=== PATIENT | male | born 1980 ===

== ENCOUNTER 2021-10-18 16:56 | Inpatient (IN) | payer OTHER, SELFPAY ==
[2021-10-18 19:25] VITALS: BP 1678/96; PULSE 95; RESP 18; TEMP 36.9; O2SAT 98; BMI 44.2
[2021-10-18 22:41] VITALS: BP 165/97; PULSE 82; RESP 20; TEMP 37.1; O2SAT 97
[2021-10-18 23:01] LABS: Hematocrit 43.7 % (42.0-52.0); Hemoglobin 15.1 g/dl (14.0-18.0); Mean Corpuscular HGB Conc 34.6 g/dl (31.0-36.0); Mean Corpuscular Hemoglobin 29.9 pg (27.0-33.0); Mean Corpuscular Volume 86.5 fL (80.0-98.0); Mean Platelet Volume 10.8 fL (9.4-12.4); Platelet Count 167 X10*3/uL (160-400); Red Blood Count 5.05 X10*6/uL (4.60-5.80); Red Cell Distribution Width 13.2 % (11.0-16.0); White Blood Count 9.9 X10*3/uL (4.8-10.8)
[2021-10-18 23:17] LABS: Alanine Aminotransferase 58 U/L (0-40); Albumin Level 4.3 g/dL (3.5-5.0); Alkaline Phosphatase 34 U/L (39-117); Anion Gap 13 (12-20); Aspartate Amino Transferase 24 U/L (5-37); Bilirubin Total 1.6 mg/dL (0.0-1.0); Blood Urea Nitrogen 13 mg/dL (9-16); Calcium 9.4 mg/dL (8.4-10.2); Carbon Dioxide 23 mmol/L (22-29); Chloride 108 mmol/L (96-108); Creatinine Clr Calc Pharmacy 130.8; Estimated Glomerular Filt Rate > 60; Glucose Random 92 mg/dL (60-115); Sodium 140 mmol/L (135-145); Total Protein 7.2 g/dL (6.5-8.0)
--- NOTE | 2021-10-18 23:30 | ED.SKABFB ---
HPI - Skin/Abscess/Foreign Bdy General Chief complaint: Burn/Smoke Inhalation Stated complaint: infection on left foot Time Seen by Provider: 10/18/21 22:34 Source: patient Mode of arrival: ambulatory Limitations: no limitations History of Present Illness HPI narrative: 40-year-old male who presents emergency department for evaluation burn to his left foot with increased pain, increased redness increased swelling. 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 He then accidentally spilled this water over his left foot. This occurred 72 hours prior to evaluation. He states that over the past 24 hours, he has had increased pain in his foot and ankle with increased swelling of his foot and ankle. He has also noted redness that is traveled up his leg. He denied fever, chills, weakness, fatigue, nausea or vomiting. The patient states that he has not been on antibiotics recently. He has never had a MRSA infection. He states that his tetanus status was updated 3 years prior at a routine physical examination. He states that he is currently having pain in his foot is ankle which she describes as a throbbing sensation, the pain is 7/10 at its worst. He did take ibuprofen with some relief, his last dose of ibuprofen was at noon. The patient is not vaccinated against COVID-19. complaint: rash Onset (ago): day(s) (3) Tetanus up to date: yes Location: LLE and L foot Severity: severe Severity scale (1-10): 7 Quality: other (Throbbing) Pain Consistency: constant Relieving factors: medication (Ibuprofen) Exacerbating factors: none Context: other (Hot water burn) Treatments prior to arrival: NSAID and other (Bacitracin) Related Data Allergies Allergy/AdvReac Type Severity Reaction Status Date / Time penicillin G Allergy Severe anaphylaxis Unverified 01/18/20 00:00 Penicillins [PENICILLINS] Allergy Unknown UNKNOWN Unverified 02/08/20 15:36 Review of Systems Review of Systems: Yes all other systems are reviewed and are negative [facility] Past Medical History [facility] Narrative: Past medical history: None. Past surgical history: Hernia repair, carpal tunnel repair. Social history: He denies tobacco use. He drinks several beers 2 times a week. He denies drug use. Social History Social History Advance Directives: No Advance Directives Information Provided: No Physical Exam Vital Signs: Vital Signs: Last Vital Signs Temp 98.8 F 10/18/21 22:41 Pulse 82 10/18/21 22:41 Resp 20 10/18/21 22:41 BP 165/97 H 10/18/21 22:41 Pulse Ox 97 10/18/21 22:41 BMI result Body Mass Index 44.2 Const: Other: Awake, alert, male patient, very pleasant cooperative, he does not appear to be in distress. Answers all questions appropriately HEENT: Head: Yes normal to inspection, Yes normocephalic and Yes atraumatic Ears: external ears normal General nose exam: Normal external nose present Face and sinus: Yes normal facial exam Mouth: Normal oral and palatal mucosa present Throat: Yes posterior oropharynx normal Eyes: General: appearance normal, both eyes and all related structures Pupils: Equal, round and reactive pupils present Neck: Neck: Yes normal visual inspection, Yes no lymphadenopathy, Yes trachea midline and Yes supple Chest: Chest palpation & inspection: normal inspection of the chest and normal palpation of entire chest wall Resp: Effort & Inspection: normal respiratory effort and able to speak in complete sentences Auscultation: clear to auscultation bilaterally Cardio: Rate: regular rate Rhythm: regular rhythm Heart sounds: S1 normal heart sound present, S2 normal heart sound present and no murmurs GI: Inspection: Yes normal to inspection Palpation (GI): Soft to palpation, nontender and no guarding Auscultation: normal bowel sounds : General: Yes no CVA tenderness Back/Spine/Pelvis: Back: no CVA tenderness Skin: General skin exam: no rashes or lesions noted Neuro: Cranial nerves: Yes CN's II-XII intact bilaterally and Yes Equal, round and reactive pupils present Cognition (Neuro): normal cognition Motor exam (neuro): 5/5 motor strength present throughout Extrem: Other: Second-degree burn to his foot and ankle with soft tissue swelling over the foot and ankle with erythema extending from the foot to just above the ankle with lymphangitis extending along the medial aspect of the calf and thigh extending to the left groin area. No adenopathy noted in the left groin area. General: Yes normal to inspection Psych: Appearance: grossly normal Speech and movement: Normal speech and movement present Affect: normal affect Attitude: cooperative Course Course Course Narrative: 40-year-old male patient who sustained a a burn injury to his right foot and ankle 3 days prior. Patient was making beer an excellent poor hot water over his foot and ankle. He states that over the last 24 hours he is had increased pain and swelling over the foot and ankle. He has had no other systemic symptoms. Vital signs did reveal an elevated blood pressure of 167/96 otherwise were unremarkable. The patient's right foot and ankle has several areas of second-degree burn he has lost the overlying skin and several areas of first-degree burn. He also has erythema of the foot extending to the ankle with a line a lymphangitis extending over the medial foot calf and thigh up to the groin area. The patient's tetanus status is up-to-date. The patient has a significant cellulitis with lymphangitis caused by this burn. I did order labs to include CBC, CMP, CRP, procalcitonin, lactate, blood cultures x2, COVID-19 and influenza screens. Patient has not been on antibiotics recently and does not have a history of MRSA therefore hip to with cefazolin 2 g IV. The patient's second-degree hoffman will be covered with bacitracin and dressed with non stick dressings. I will discuss admission with the covering hospitalist. 0108: Laboratory evaluation: CBC was normal. CMP did reveal an elevated AST and ALT of 5834, this appears to be chronic. Lactate was normal at 1.1. CRP was slightly elevated at 0.93. COVID-19 and influenza were negative. PTT was slightly elevated at 42.8. I did discuss the patient with the covering hospitalist, Dr. Sheehan and the patient will be admitted for further management. MDM - Skin/Abscess/Foreign Bdy Lab Data Result diagrams: 10/18/21 22:54 10/18/21 22:54 Labs: Lab Results 10/18/21 10/18/21 10/18/21 Range/Units 22:54 22:54 23:52 WBC 9.9 (4.8-10.8) X10*3/uL RBC 5.05 (4.60-5.80) X10*6/uL Hgb 15.1 (14.0-18.0) g/dl Hct 43.7 (42.0-52.0) % MCV 86.5 (80.0-98.0) fL MCH 29.9 (27.0-33.0) pg MCHC 34.6 (31.0-36.0) g/dl RDW 13.2 (11.0-16.0) % Plt Count 167 (160-400) X10*3/uL MPV 10.8 (9.4-12.4) fL Absolute Nucleated RBC 0.000 (0.0-0.012) X10*3/uL Nucleated RBC % (auto) 0.0 (0.0-0.2) /100WBC PT (9.9-13.0) SEC INR (0.9-1.1) APTT (24.1-38.0) SEC Sodium 140 (135-145) mmol/L Potassium 4.0 (3.3-5.1) mmol/L Chloride 108 (96-108) mmol/L Carbon Dioxide 23 (22-29) mmol/L Anion Gap 13 (12-20) BUN 13 (9-16) mg/dL Creatinine 1.10 (0.5-1.4) mg/dL Estim Creat Clear Calc 130.8 Estimated GFR > 60 Random Glucose 92 (60-115) mg/dL Lactic Acid (0.5-2.0) mmol/L Calcium 9.4 (8.4-10.2) mg/dL Total Bilirubin 1.6 H (0.0-1.0) mg/dL AST 24 (5-37) U/L ALT 58 H (0-40) U/L Alkaline Phosphatase 34 L (39-117) U/L C-Reactive Protein 0.93 H Cancelled (< or = 0.50) mg/dL Total Protein 7.2 (6.5-8.0) g/dL Albumin 4.3 (3.5-5.0) g/dL COVID-19 ([facility]) (Negative) COVID-19 Clin Com Influenza Type A ([facility]) (Negative) Influenza Type B ([facility]) (Negative) Influenza A & B Note 10/18/21 10/18/21 10/18/21 Range/Units 23:52 23:56 23:56 WBC (4.8-10.8) X10*3/uL RBC (4.60-5.80) X10*6/uL Hgb (14.0-18.0) g/dl Hct (42.0-52.0) % MCV (80.0-98.0) fL MCH (27.0-33.0) pg MCHC (31.0-36.0) g/dl RDW (11.0-16.0) % Plt Count (160-400) X10*3/uL MPV (9.4-12.4) fL Absolute Nucleated RBC (0.0-0.012) X10*3/uL Nucleated RBC % (auto) (0.0-0.2) /100WBC PT 11.7 (9.9-13.0) SEC INR 1.0 (0.9-1.1) APTT 42.8 H (24.1-38.0) SEC Sodium (135-145) mmol/L Potassium (3.3-5.1) mmol/L Chloride (96-108) mmol/L Carbon Dioxide (22-29) mmol/L Anion Gap (12-20) BUN (9-16) mg/dL Creatinine (0.5-1.4) mg/dL Estim Creat Clear Calc Estimated GFR Random Glucose (60-115) mg/dL Lactic Acid (0.5-2.0) mmol/L Calcium (8.4-10.2) mg/dL Total Bilirubin (0.0-1.0) mg/dL AST (5-37) U/L ALT (0-40) U/L Alkaline Phosphatase (39-117) U/L C-Reactive Protein (< or = 0.50) mg/dL Total Protein (6.5-8.0) g/dL Albumin (3.5-5.0) g/dL COVID-19 ([facility]) Negative (Negative) COVID-19 Clin Com See Note Influenza Type A ([facility]) Negative (Negative) Influenza Type B ([facility]) Negative (Negative) Influenza A & B Note See Note 10/18/21 Range/Units 23:56 WBC (4.8-10.8) X10*3/uL RBC (4.60-5.80) X10*6/uL Hgb (14.0-18.0) g/dl Hct (42.0-52.0) % MCV (80.0-98.0) fL MCH (27.0-33.0) pg MCHC (31.0-36.0) g/dl RDW (11.0-16.0) % Plt Count (160-400) X10*3/uL MPV (9.4-12.4) fL Absolute Nucleated RBC (0.0-0.012) X10*3/uL Nucleated RBC % (auto) (0.0-0.2) /100WBC PT (9.9-13.0) SEC INR (0.9-1.1) APTT (24.1-38.0) SEC Sodium (135-145) mmol/L Potassium (3.3-5.1) mmol/L Chloride (96-108) mmol/L Carbon Dioxide (22-29) mmol/L Anion Gap (12-20) BUN (9-16) mg/dL Creatinine (0.5-1.4) mg/dL Estim Creat Clear Calc Estimated GFR Random Glucose (60-115) mg/dL Lactic Acid 1.5 (0.5-2.0) mmol/L Calcium (8.4-10.2) mg/dL Total Bilirubin (0.0-1.0) mg/dL AST (5-37) U/L ALT (0-40) U/L Alkaline Phosphatase (39-117) U/L C-Reactive Protein (< or = 0.50) mg/dL Total Protein (6.5-8.0) g/dL Albumin (3.5-5.0) g/dL COVID-19 ([facility]) (Negative) COVID-19 Clin Com Influenza Type A ([facility]) (Negative) Influenza Type B ([facility]) (Negative) Influenza A & B Note
[2021-10-19 00:01] LABS: Prothrombin Time 11.7 SEC (9.9-13.0)
[2021-10-19 00:04] LABS: Partial Thromboplastin Time 42.8 SEC (24.1-38.0)
[2021-10-19] MEDS: 0.9 % Sodium Chloride 1,000 ML 999 ML IV (00:11)
[2021-10-19 00:13] LABS: C Reactive Protein 0.93 mg/dL (< or = 0.50)
[2021-10-19] MEDS: Ketorolac Tromethamine 15 MG/ML VIAL 30 MG IVPUSH (00:13)
[2021-10-19 00:15] LABS: Lactic Acid 1.5 mmol/L (0.5-2.0)
[2021-10-19 00:24] LABS: COVID-19 Test Negative (Negative); IDNOW Serial# 16C4AD1C; Influenza A Negative (Negative); Influenza B2 Negative (Negative)
[2021-10-19] MEDS: Bacitracin Oint 0.9 GM PACKET 1 APPL TOPICAL (00:42)
[2021-10-19] MEDS: ceFAZolin Sodium/Dextrose,Iso 2 GM/50 ML PIGGYBACK IV ×2 (00:42→07:55)
--- NOTE | 2021-10-19 01:09 | PM.IMHP ---
History of Present Illness Date of Service: 10/19/21 Chief Complaint: burn injury /pain 40-year-old male with no significant past medical history presented to the hospital today with chief complaint of left lower extremity pain redness and swelling. Patient reported that couple days ago he had heart border at 180 degrees F fell on his feet while he was brewing beer; followed by he has been applying some topical antibiotics to prevent infection; lately noted to have gradually worsening erythema and pain hence decided to come to the ER for further evaluation. Denies any fevers and chills. Denies any chest pain or palpitation Denies any numbness tingling or focal weakness Review of all other systems is negative except mentioned above ER course: Per ER team patient noted to have significant erythema, blisters on the left foot and ankle; with spreading lymphangitis; given several Zosyn. Admitted to the hospital for further management PMFSH Social History Advance Directives: No Advance Directives Information Provided: No Meds Allergies Allergy/AdvReac Type Severity Reaction Status Date / Time penicillin G Allergy Severe anaphylaxis Unverified 01/18/20 00:00 Penicillins [PENICILLINS] Allergy Unknown UNKNOWN Unverified 02/08/20 15:36 Active Medications: Current Medications Enoxaparin Sodium (Enoxaparin Sodium 40 Mg/0.4 Ml Syringe) 40 mg SUBCUT Q24H [facility] Hydromorphone HCl (Hydromorphone Hcl 1 Mg/Ml Syringe) 0.5 mg IVPUSH Q4H PRN; Protocol PRN Reason: Pain, Severe (Pain Scale 7-10) Sodium Chloride (Ns) 1,000 mls @ 50 mls/hr IVCONT .Q20H [facility]SAEL Cefazolin Sodium/Dextrose (Ancef) 2 gm in 50 mls @ 100 mls/hr IV Q12H [facility] Sodium Chloride (0.9 % Sodium Chloride Flush 3 Ml Syringe) 3 ml IVFLUSH QSHIFT [facility] Physical Exam Vital Signs and Narrative: Vital Signs: Last Vital Signs Temp 98.8 F 10/18/21 22:41 Pulse 82 10/18/21 22:41 Resp 20 10/18/21 22:41 BP 165/97 H 10/18/21 22:41 Pulse Ox 97 10/18/21 22:41 BMI result Body Mass Index 44.2 Gen: Appears be in no acute distress HEENT: NCAT, Moist mucosa. Pulmonary: Vesicular breath sounds, fair air entry CVS: Normal S1-S2 Abdomen: BS+, Soft, Nontender Extremities: Warm well perfused; left lower extremity has burn injury with erythema and blisters as shown in the pictures below; also noted lymphangitis Neuro: Alert and awake. Results Labs CBC and Chem 7: 10/18/21 22:54 10/18/21 22:54 Labs: Laboratory Results - last 24 hr 10/18/21 10/18/21 10/18/21 22:54 22:54 23:52 MCV 86.5 MCH 29.9 MCHC 34.6 RDW 13.2 Plt Count 167 MPV 10.8 Absolute Nucleated RBC 0.000 Nucleated RBC % (auto) 0.0 PT INR APTT Anion Gap 13 Estim Creat Clear Calc 130.8 Estimated GFR > 60 Random Glucose 92 Lactic Acid Calcium 9.4 Total Bilirubin 1.6 H AST 24 ALT 58 H Alkaline Phosphatase 34 L C-Reactive Protein 0.93 H Cancelled Total Protein 7.2 Albumin 4.3 COVID-19 ([facility]) COVID-19 Clin Com Influenza Type A ([facility]) Influenza Type B ([facility]) Influenza A & B Note 10/18/21 10/18/21 10/18/21 23:52 23:56 23:56 MCV MCH MCHC RDW Plt Count MPV Absolute Nucleated RBC Nucleated RBC % (auto) PT 11.7 INR 1.0 APTT 42.8 H Anion Gap Estim Creat Clear Calc Estimated GFR Random Glucose Lactic Acid Calcium Total Bilirubin AST ALT Alkaline Phosphatase C-Reactive Protein Total Protein Albumin COVID-19 ([facility]) Negative COVID-19 Clin Com See Note Influenza Type A ([facility]) Negative Influenza Type B ([facility]) Negative Influenza A & B Note See Note 10/18/21 23:56 MCV MCH MCHC RDW Plt Count MPV Absolute Nucleated RBC Nucleated RBC % (auto) PT INR APTT Anion Gap Estim Creat Clear Calc Estimated GFR Random Glucose Lactic Acid 1.5 Calcium Total Bilirubin AST ALT Alkaline Phosphatase C-Reactive Protein Total Protein Albumin COVID-19 ([facility]) COVID-19 Clin Com Influenza Type A ([facility]) Influenza Type B ([facility]) Influenza A & B Note Assessment and Plan (1) Burn: Status: Acute (2) Cellulitis of foot: Status: Acute Plan 40-year-old male with no significant past medical history presented to the hospital today with chief complaint of left lower extremity pain redness and swelling secondary to burn injury from hot water; noted to have cellulitis. Admitted for further management. Left ankle/foot burn injury / cellulitis: Continue cefazolin IV Dilaudid p.r.n. Id consult for further recommendations Silver sulfadiazine wound consult DVT prophylaxis: Lovenox Code status: Full code Quality Stroke Does the patient have a stroke diagnosis?: No VTE Prior VTE?: No VTE Risk Level:: Medical - moderate - high VTE Device Contraindication: Treatment Not Indicated VTE Drug Contraindication: N/A - Med Ordered
[2021-10-19] MEDS: Morphine Sulfate 4 MG/ML CARTRIDGE IVPUSH ×2 (02:23→11:43)
[2021-10-19] MEDS: 0.9 % Sodium Chloride 1,000 ML 50 ML IVCONT (02:24)
[2021-10-19 07:41] VITALS: BP 148/93; PULSE 66; RESP 14; O2SAT 99
[2021-10-19] MEDS: Silver Sulfadiazine 1 % Cream 20 GM TUBE 1 APPL TOPICAL (07:54)
[2021-10-19] MEDS: HYDROmorphone HCl 1 MG/ML SYRINGE 0.5 MG IVPUSH (07:54)
[2021-10-19] MEDS: Enoxaparin Sodium 40 MG/0.4 ML SYRINGE SUBCUT (07:54)
[2021-10-19] MEDS: 0.9 % Sodium Chloride Flush 3 ML SYRINGE IVFLUSH (07:55)
[2021-10-19 08:17] LABS: MANUAL DIFF FLAG NO
[2021-10-19 08:25] LABS: Basophils Percent Auto 0.2 % (0-2); Eosinophils Absolute Auto 0.3 X10*3/uL (0.0-0.4); Eosinophils Percent Auto 3.4 % (0-4); Hematocrit 42.8 % (42.0-52.0); Hemoglobin 14.6 g/dl (14.0-18.0); Imm Gran Abs Auto 0.06 X10*3/uL (0.00-0.03); Imm Gran Pct Auto 0.7 % (0.0-0.4); Lymphocytes Absolute Auto 1.7 X10*3/uL (1.2-4.9); Mean Corpuscular HGB Conc 34.1 g/dl (31.0-36.0); Mean Corpuscular Hemoglobin 29.7 pg (27.0-33.0); Mean Corpuscular Volume 87.2 fL (80.0-98.0); Mean Platelet Volume 11.2 fL (9.4-12.4); Monocytes Absolute Auto 0.9 X10*3/uL (0.1-1.2); Monocytes Percent Auto 9.8 % (2-11); Neutrophils Absolute Auto 6.2 x10*3/uL (2.0-8.3); Neutrophils Percent Auto 67.9 % (45-73); Platelet Count 139 X10*3/uL (160-400); Red Blood Count 4.91 X10*6/uL (4.60-5.80); Red Cell Distribution Width 13.2 % (11.0-16.0); White Blood Count 9.2 X10*3/uL (4.8-10.8)
[2021-10-19 08:48] LABS: Anion Gap 13 (12-20); Blood Urea Nitrogen 11 mg/dL (9-16); Calcium 8.8 mg/dL (8.4-10.2); Carbon Dioxide 24 mmol/L (22-29); Chloride 107 mmol/L (96-108); Creatinine Clr Calc Pharmacy 171.3; Estimated Glomerular Filt Rate > 60; Glucose Random 101 mg/dL (60-115); Potassium 4.4 mmol/L (3.3-5.1); Sodium 140 mmol/L (135-145)
--- NOTE | 2021-10-19 09:05 | PHA.MEDREC ---
Pharmacy Consult ? Medication Reconciliation Pharmacy has completed the medication reconciliation. Patient reports no medications prescription or OTC. Cong AmadorD
--- NOTE | 2021-10-19 09:46 | PC.NURSE ---
LLE wound cleaned, and dressed. ordered silverdine cream placed on wound. pt a/o, ambulatory. PRN pain meds given. Pt to be heading to overflow. Report called to Laura JONH.
--- NOTE | 2021-10-19 13:31 | MHC.CM.PN ---
PT REPORTS HE LIVES ALONE AND IS INDEPENDENT [facility] PT DENIES USING DME OR HAVING HOME SERVICES PT REPORTS HE IS NOT COVID-19 VACCINATED PCP: ROOPA VILLATORO PT REPORTS HIS FATHER IS HIS HCP DC PLAN, HOME NO SERVICES PT WILL DRIVE HIMSELF AT DC
[2021-10-19] MEDS: HYDROmorphone HCl 1 MG/ML SYRINGE IVPUSH ×2 (13:49→17:57)
--- NOTE | 2021-10-19 15:44 | PHA.PROG ---
Admission Date/Time: October 19, 2021 00:56 Indication: Weight in k kg Adjusted body weight in K.76 Waves body weight in Kg: Obesity Dosing Indication % IBW: Serum Creatinine - Last 168 Hours 10/18/21 10/19/21 22:54 07:34 Creatinine 1.10 0.84 Estimated CrCl and GFR - Last 168 Hours 10/18/21 10/19/21 22:54 07:34 Estim Creat Clear Calc 130.8 171.3 Estimated GFR > 60 > 60 Vancomycin Loading Dose: 2000 mg Current Vancomycin Dosing Regimen:1 gram q 12 hour Vancomycin Monitoring using AUC goal of 400 - 600 range with trough as surrogate marker:predicted AUC 445 Date and Time for next Vancomycin Level to be drawn:WILL CHECK A RANDOM AFTER 2 DOSES FOR TOXICITY Pharmacist Comments on Vancomycin Plan: Vancomycin dosing will take advantage of [employer] as a clinical decision support tool that uses Bayesian modeling to calculate individual patient's pharmacokinetic parameters and forecast the patient's drug concentration time course with the target goal AUC 24 range of 400 - 600 mg/L/hr.
[2021-10-19 17:47] VITALS: BP 158/92; PULSE 87; RESP 18; TEMP 37.2; O2SAT 99
--- NOTE | 2021-10-19 18:55 | P.PNIM_ITS ---
Subjective Subjective Date of Service: 10/19/21 Interval History: Patient seen and examined at bedside. Reports improvement of the redness on his upper foot/lower leg. Reports pain is poorly controlled. Denies any chest pain or shortness of breath, no abdominal pain nausea or vomiting, no diarrhea. No fever or chills. Review of Systems Review of Systems: Yes all other systems are reviewed and are negative Physical Exam Vital Signs: Vital Signs: Last Vital Signs Temp 99.0 F 10/19/21 17:47 Pulse 87 10/19/21 17:47 Resp 18 10/19/21 17:47 BP 158/92 H 10/19/21 17:47 Pulse Ox 99 10/19/21 17:47 BMI result Body Mass Index 44.2 Const: General: cooperative, comfortable and no acute distress Resp: Auscultation: clear to auscultation bilaterally Cardio: Other: Normal rate and rhythm GI: Other: Soft, nontender, bowel sounds normal Skin: Other: Left foot wrapped, no evidence of discharge Objective Data Active Medications Enoxaparin Sodium (Enoxaparin Sodium 40 Mg/0.4 Ml Syringe) 40 mg SUBCUT Q24H [facility] Last Admin: 10/19/21 07:54 Dose: 40 mg Documented by: AYUSH Hydromorphone HCl (Hydromorphone Hcl 1 Mg/Ml Syringe) 1 mg IVPUSH Q4H PRN; Protocol PRN Reason: Pain, Severe (Pain Scale 7-10) Last Admin: 10/19/21 17:57 Dose: 1 mg Documented by: BRAULIO Sodium Chloride (Ns) 1,000 mls @ 50 mls/hr IVCONT .Q20H [facility] Last Admin: 10/19/21 02:24 Dose: 50 mls/hr Documented by: BRAULIO Vancomycin HCl 1,000 mg/ (Sodium Chloride) 270 mls @ 270 mls/hr IV Q12H [facility] Pharmacy Consult (Consult Rx Vancomycin Dosing) 1 each MISCELLANE DAILY PRN PRN Reason: Consult order Silver Sulfadiazine (Silver Sulfadiazine 1 % Cream 20 Gm Tube) 1 appl TOPICAL DAILY [facility] Last Admin: 10/19/21 07:54 Dose: 1 appl Documented by: AYUSH Sodium Chloride (0.9 % Sodium Chloride Flush 3 Ml Syringe) 3 ml IVFLUSH QSHIFT [facility] Last Admin: 10/19/21 17:43 Dose: Not Given Documented by: BRAULIO Non-Admin Reason: IV Running Labs CBC & Chem 7: 10/19/21 07:34 10/19/21 07:34 Labs: Laboratory Results - last 24 hr 10/18/21 10/18/21 10/18/21 22:54 22:54 23:52 MCV 86.5 MCH 29.9 MCHC 34.6 RDW 13.2 Plt Count 167 MPV 10.8 Immature Gran % (Auto) Neut % (Auto) Lymph % (Auto) [place] % (Auto) Eos % (Auto) Baso % (Auto) Lymph # (Auto) [place] # (Auto) Eos # (Auto) Baso # (Auto) Abs Immat Gran (auto) Absolute Neuts (auto) Absolute Nucleated RBC 0.000 Nucleated RBC % (auto) 0.0 PT INR APTT Anion Gap 13 Estim Creat Clear Calc 130.8 Estimated GFR > 60 Random Glucose 92 Lactic Acid Calcium 9.4 Total Bilirubin 1.6 H AST 24 ALT 58 H Alkaline Phosphatase 34 L C-Reactive Protein 0.93 H Cancelled Total Protein 7.2 Albumin 4.3 COVID-19 ([facility]) COVID-19 Clin Com Influenza Type A ([facility]) Influenza Type B ([facility]) Influenza A & B Note 10/18/21 10/18/21 10/18/21 23:52 23:56 23:56 MCV MCH MCHC RDW Plt Count MPV Immature Gran % (Auto) Neut % (Auto) Lymph % (Auto) [place] % (Auto) Eos % (Auto) Baso % (Auto) Lymph # (Auto) [place] # (Auto) Eos # (Auto) Baso # (Auto) Abs Immat Gran (auto) Absolute Neuts (auto) Absolute Nucleated RBC Nucleated RBC % (auto) PT 11.7 INR 1.0 APTT 42.8 H Anion Gap Estim Creat Clear Calc Estimated GFR Random Glucose Lactic Acid Calcium Total Bilirubin AST ALT Alkaline Phosphatase C-Reactive Protein Total Protein Albumin COVID-19 ([facility]) Negative COVID-19 Clin Com See Note Influenza Type A ([facility]) Negative Influenza Type B ([facility]) Negative Influenza A & B Note See Note 10/18/21 10/19/21 10/19/21 23:56 07:34 07:34 MCV 87.2 MCH 29.7 MCHC 34.1 RDW 13.2 Plt Count 139 L MPV 11.2 Immature Gran % (Auto) 0.7 H Neut % (Auto) 67.9 Lymph % (Auto) 18.0 L [place] % (Auto) 9.8 Eos % (Auto) 3.4 Baso % (Auto) 0.2 Lymph # (Auto) 1.7 [place] # (Auto) 0.9 Eos # (Auto) 0.3 Baso # (Auto) 0.0 Abs Immat Gran (auto) 0.06 H Absolute Neuts (auto) 6.2 Absolute Nucleated RBC 0.000 Nucleated RBC % (auto) 0.0 PT INR APTT Anion Gap 13 Estim Creat Clear Calc 171.3 Estimated GFR > 60 Random Glucose 101 Lactic Acid 1.5 Calcium 8.8 D Total Bilirubin AST ALT Alkaline Phosphatase C-Reactive Protein Total Protein Albumin COVID-19 ([facility]) COVID-19 Clin Com Influenza Type A ([facility]) Influenza Type B ([facility]) Influenza A & B Note Assessment and Plan (1) Cellulitis of foot: Status: Acute (2) Burn: Status: Acute Plan 40-year-old male with? no significant past medical history presented to the hospital today with chief complaint of left lower extremity pain redness and swelling? secondary to burn injury from hot water; noted to have cellulitis.? Admitted for further management.? #Left ankle/foot burn injury / cellulitis: - given the exposed Injury, will switch done via antibiotics - Dilaudid p.r.n. - Id consult for further recommendations - Silver sulfadiazine - wound consult DVT prophylaxis:? Lovenox Code status:? Full code Quality Stroke Does the patient have a stroke diagnosis?: No VTE Prior VTE?: No VTE Risk Level:: Medical - moderate - high VTE Device Contraindication: Treatment Not Indicated VTE Drug Contraindication: N/A - Med Ordered
[2021-10-20] VITALS: BP 161/81; PULSE 88; RESP 18; TEMP 37.4; O2SAT 100
[2021-10-20] MEDS: HYDROmorphone HCl 1 MG/ML SYRINGE IVPUSH (01:30)
[2021-10-20] MEDS: 0.9 % Sodium Chloride 1,000 ML 50 ML IVCONT (01:32)
[2021-10-20 04:15] VITALS: BP 151/75; PULSE 91; RESP 16; TEMP 36.8; O2SAT 97
[2021-10-20] MEDS: vancomycin HCL 1,000 MG in 0.9 % Sodium Chloride 250 ML 270 MG IV (05:59)
[2021-10-20 08:28] VITALS: BP 127/68; PULSE 89; RESP 16; TEMP 37.7; O2SAT 95
[2021-10-20] MEDS: Enoxaparin Sodium 40 MG/0.4 ML SYRINGE SUBCUT (08:34)
--- NOTE | 2021-10-20 09:51 | HE.PHANOTE ---
Vancomycin Dosing Addendum Vancomycin Trough from 10/20/21 @1600, also ordered Cr for same time since it was not drawn this morning. Continue with current regimen for now
--- NOTE | 2021-10-20 10:01 | P.CONGS_ITS ---
History of Present Illness Consult details Consult date: 10/20/21 Requesting physician: Olive Page Narrative: 40-year-old male patient who sustained a left foot scald burn while making beer. He reports he was wearing flip-flops shoes when the boiling liquid used to make beer tipped over and landed on his foot. This occurred on Wednesday10/15/2021. He immediately developed blisters on the forefoot. Reports applying bacitracin ointment to the wound. Over the next several days he noted increased redness extending up above the ankle and subsequently presented to the emergency department for further evaluation. He was admitted to the hospitalist service and placed on IV antibiotics. Silvadene cream was applied to the wound. He reports improvement in the redness above the leg and mainly complains of pain in the big toe. He denies any other injuries. Review of Systems Constitutional: Constitutional: Denies chills, Denies fever(s), Denies heada natalie(s) and Denies poor appetite ENT: Denies dizziness and Denies headache(s) Cardiovascular: Cardiovascular: Denies chest pain, Denies rapid heart rate, Denies palpitations and Denies slow heart rate Respiratory: Respiratory: Denies chest congestion, Denies cough, Denies pain on inspiration and Denies wheezing Gastrointestinal: Gastrointestinal: Denies abdominal pain, Denies bloating, Denies change in stool character, Denies constipation, Denies diarrhea, Denies nausea, Denies vomiting and Denies hematemesis Musculoskeletal: Musculoskeletal: Denies back pain, Denies arthralgias, Denies joint swelling and Denies numbness Integumentary/Breasts: Skin/Breast: Reports as per HPI, Reports change in pigmentation, Reports erythema, Denies rash and Reports wounds Neurologic: Denies dizziness, Denies headache(s) and Denies numbness Psychiatric: Psychiatric: Denies anxiety and Denies depression Endocrine: Endocrine: Denies palpitations Hematologic/Lymphatic: Hematologic/Lymphatic: Denies easy bleeding, Denies easy bruising and Denies lymphadenopathy Allergic/Immunologic: Allergic/Immunologic: Denies wheezing PMFSH Social History Social History Advance Directives: No Advance Directives Information Provided: No service: No Current occupational status: employed Meds Allergies Allergy/AdvReac Type Severity Reaction Status Date / Time penicillin G Allergy Severe anaphylaxis Unverified 01/18/20 00:00 Penicillins [PENICILLINS] Allergy Unknown UNKNOWN Unverified 02/08/20 15:36 Active Medications: Current Medications Enoxaparin Sodium (Enoxaparin Sodium 40 Mg/0.4 Ml Syringe) 40 mg SUBCUT Q24H [facility] Last Admin: 10/20/21 08:34 Dose: 40 mg Documented by: Hydromorphone HCl (Hydromorphone Hcl 1 Mg/Ml Syringe) 1 mg IVPUSH Q4H PRN; Protocol PRN Reason: Pain, Severe (Pain Scale 7-10) Last Admin: 10/20/21 01:30 Dose: 1 mg Documented by: Sodium Chloride (Ns) 1,000 mls @ 50 mls/hr IVCONT .Q20H [facility] Last Admin: 10/20/21 01:32 Dose: 50 mls/hr Documented by: Vancomycin HCl 1,000 mg/ (Sodium Chloride) 270 mls @ 270 mls/hr IV Q12H [facility] Last Admin: 10/20/21 05:59 Dose: 270 mls/hr Documented by: Ibuprofen (Ibuprofen 400 Mg Tablet) 400 mg PO Q6H PRN PRN Reason: Pain, Moderate (Pain Scale 4-6 Pharmacy Consult (Consult Rx Vancomycin Dosing) 1 each MISCELLANE DAILY PRN PRN Reason: Consult order Silver Sulfadiazine (Silver Sulfadiazine 1 % Cream 20 Gm Tube) 1 appl TOPICAL DAILY [facility] Last Admin: 10/19/21 07:54 Dose: 1 appl Documented by: Sodium Chloride (0.9 % Sodium Chloride Flush 3 Ml Syringe) 3 ml IVFLUSH QSHIFT [facility] Last Admin: 10/20/21 09:36 Dose: Not Given Documented by: Home Medications Medication Instructions Recorded Confirmed Last Taken Type No Known Home Meds 10/19/21 10/19/21 Unknown History Physical Exam Vital Signs: Vital Signs: Last Vital Signs Temp 99.8 F 10/20/21 08:28 Pulse 89 10/20/21 08:28 Resp 16 10/20/21 08:28 BP 127/68 10/20/21 08:28 Pulse Ox 95 10/20/21 08:28 BMI result Body Mass Index 44.2 Const: General: cooperative and well developed Nutritional Appearance: well nourished Orientation/consciousness: patient oriented x3 HEENT: Head: Yes normocephalic and Yes atraumatic Ears: hearing grossly normal bilaterally Eyes: Sclerae: sclerae normal EOM: EOMs intact bilaterally Neck: Neck: Yes normal visual inspection Chest: Chest palpation & inspection: normal inspection of the chest Resp: Effort & Inspection: normal respiratory effort, no cough, no respiratory distress and no stridor Auscultation: clear to auscultation bilaterally Cardio: Jugular venous distension: no JVD GI: Inspection: Yes normal to inspection Skin: Other: Left foot wound as noted below, no other lesions General skin exam: dry skin Rashes: no rashes Neuro: General: patient oriented x3 and no focal motor deficits Extrem: Other: Left foot with a partial thickness scald burn involving the dorsum of the left foot not involving toes and not involving the plantar surface. Total surface area proximally 1%. Minimal erythema noted above the ankle, mostly resolved. Burn wounds are sensate to light touch. No evidence of burn wound sepsis. General: Yes full ROM and Yes no clubbing, cyanosis or edema Ankle/foot/toe images: 1. Site of scald burn wound left foot Psych: Appearance: grossly normal Results Labs Result diagrams: 10/19/21 07:34 10/19/21 07:34 Labs: All other labs normal. Assessment and Plan (1) Burn: Status: Acute (2) Cellulitis of foot: Status: Acute (3) Cellulitis of ankle: Status: Acute Plan 40-year-old male patient presenting with a scald burn to the left foot while making beer. Patient had a partial-thickness burn to the dorsum of the left foot approximately 1% total body surface area. No areas of full-thickness burn are identified. There is no evidence of burn wound sepsis. Wound should heal w ithout the need for surgery or skin graft. Recommend continuing the daily Silvadene dressings. Patient may shower to remove the old Silvadene and apply a new dressing with Silvadene followed by dry sterile dressings. He should keep his left leg elevated as much as possible and avoid prolonged standing and walking. He should follow up either with our office or other wound care center within the next week. Procedures Date of Service Date of Service: 10/20/21
[2021-10-20] MEDS: Ibuprofen 400 MG TABLET PO (10:18)
[2021-10-20] MEDS: Silver Sulfadiazine 1 % Cream 20 GM TUBE 1 APPL TOPICAL (10:19)
--- NOTE | 2021-10-20 11:04 | P.DS_ITS ---
DS: Providers Provider Date of Service: 10/20/21 Date of admission: 10/19/21 00:56 Primary care physician: Smith Asencio MD Consults: 10/19/21 00:54 Consult to Infectious Diseases Routine Consulting Provider: Janine Bishop Reason for consultation: cellulitis s/p burn injury 10/20/21 09:41 Consult to General Surgery Routine Consulting Provider: Severo Andrews Reason for consultation: left foot burn Has provider been notified: No DS: Diagnosis Discharge Diagnosis (1) Burn: Status: Acute (2) Cellulitis of foot: Status: Acute (3) Cellulitis of ankle: Status: Acute DS: Summary Hospital Course Hospital Course: History of presenting illness Chief Complaint:? burn injury /pain ?40-year-old male with? no significant past medical history presented to the hospital today with chief complaint of left lower extremity pain redness and swelling.? Patient reported that couple days ago 180 degrees radha water on his foot while he was? brewing beer;he has been applying silvadene to prevent infection; lately noted to have gradually worsening erythema and pain hence decided to come to the ER for further evaluation.? Denies any fevers and chills.? Denies any chest pain or palpitation Denies any numbness tingling or focal weakness Review of all other systems is negative except mentioned above ER course: Per ER team patient noted to have significant erythema, blisters on the left foot and ankle; with spreading lymphangitis; given several Zosyn.? Admitted to the hospital for further management. Hospital course 40-year-old male with? no significant past medical history presented to the hospital with chief complaint of left lower extremity pain redness and swelling? secondary to burn injury from hot water; noted to have cellulitis of dorsum of foot extended towards lower leg patient treated with IV antibiotics, analgesics and daily Silvadene dressing symptoms improved to above treatment subsequently patient evaluated by Dr. Ulrich from General surgery patient diagnosed to have partial thickness burn he agreed with daily Silvadene treatment since patient is feeling better he is being discharged home on oral antibiotics for total 7 days he has been recommended to keep left foot elevated and avoid prolong standing he has been recommended outpatient follow-up with Dr. Ulrich for ambulation he has been provided crutches patient is being discharged on Motrin and oxycodone for pain control. Time Spent with Patient Time attestation: Total time spent providing and/or coordinating discharge services: Discharge coordination time: Greater than 30 minutes Quality: Safe Use of Opioids Does Pt have an Active Cancer Diagnosis on the Problem List?: No Quality: Stroke Does the patient have a stroke diagnosis?: No Physical Exam Vital Signs: Vital Signs: Last Vital Signs Temp 99.8 F 10/20/21 08:28 Pulse 89 10/20/21 08:28 Resp 16 10/20/21 08:28 BP 127/68 10/20/21 08:28 Pulse Ox 95 10/20/21 08:28 BMI result Body Mass Index 44.2 Const: Other: General awake,alert, no acute distress. Neck no JVD. CVS regular rate rhythm, Respiratory lungs clear to auscultation, no respiratory distress, no wheeze, no rhonchi. Gastrointestinal abdomen soft, nontender, bowel sounds audible Extremities right lower extremity no edema., left lower extremity partial- thickness burn, with significant hyperemia Neuro nonfocal Skin no rash DS: Data Data Completed and Pending Labs on day of discharge: Preliminary micro results at discharge 10/19/21 00:27 Blood Culture - Preliminary Blood - Venous No growth after 24 hours. 10/18/21 23:52 Blood Culture - Preliminary Blood - Venous No growth after 24 hours. Discharge Plan Discharge Patient Disposition: Home, Self-Care Discharge Diagnosis: Acute left foot/ankle cellulitis Left foot burn Referrals: Smith Asencio MD [Primary Care Provider] - 1 Week Discharge Medications: New oxycodone 5 mg tablet 5 mg PO Q6H PRN (Reason: pain (scale score 7-10)) Qty: 14 0RF silver sulfadiazine 1 % Cream 1 appl topical DAILY Qty: 85 0RF ibuprofen 400 mg Tablet 400 mg PO Q6H PRN (Reason: Pain, Moderate (Pain Scale 4-6) Qty: 30 0RF amoxicillin-pot clavulanate 875-125 mg tablet 1 tab PO BID Qty: 10 0RF famotidine [Pepcid] 20 mg tablet 20 mg PO DAILY Qty: 20 0RF Discharge Orders: Discharge Order (Routine); Ordered 10/20/21 Ordered By: Olive Page Diet: advance to usual diet Activity on Discharge: Walk with crutches Stand Alone Forms: Patient Portal Discharge page Care Plan Goals: Left foot with partial-thickness burn to dorsum of left foot apply Silvadene cream to foot once daily, may shower to remove the old Silvadene and then apply a new dressing keep left leg elevated as much as possible, avoid prolonged walking and standing. Take Tylenol/Motrin for pain/take Pepcid 1 tablet daily for gastric ulcer prevention while on motrin. Health Concerns: As above Plan of Treatment: Outpatient follow-up with Dr. Ulrich from General surgery in 1 week or follow- up with Wound Care Clinic Assessment: As per DC summary
--- NOTE | 2021-10-20 11:48 | MHC.CM.PN ---
HOME - SELF CARE CAR IS IN LOT RN AWARE OF PLAN
== END 2021-10-20 12:02 | disposition home or self-care (01) | DRG 844 ==
LOC: HO.ED 10-19 00:31 → HO.EDOVER 10-19 01:33 → HO.S3 10-20 11:40
PROVIDERS: Admitting Provider Hospitalist; Emergency Provider Emergency Medicine Emergency Medical Services; PCP Internal Medicine; Visit Provider Hospitalist
DX: T25.292A Burn of second degree of multiple sites of left ankle and foot, initial encounter (principal); L03.116 Cellulitis of left lower limb; T31.0 Burns involving less than 10% of body surface; X12.XXXA Contact with other hot fluids, initial encounter; Z20.822 Contact with and (suspected) exposure to COVID-19; Y93.G3 Activity, cooking and baking; Z88.0 Allergy status to penicillin; Z79.899 Other long term (current) drug therapy
CPT/HCPCS: 36415; 80048; 80053; 83605; 85025; 85027; 85610; 85730; 86140; 87040; 87502; 87635; 96361; 96374; 96375; 99218; 99284; 99285; J0690; J1170; J1650; J1885; J2270; J3370

== ENCOUNTER 2022-09-14 07:17 | Outpatient (REF) | payer OTHER, SELFPAY ==
[2022-09-14 11:17] LABS: MANUAL DIFF FLAG NO
[2022-09-14 11:31] LABS: Appearance Urine Clear; Color Urine Yellow; Glucose Urine UA Negative (Negative); Leukocyte Esterase Urine Negative (Negative); Nitrite Urine Negative (Negative); Urine Blood Negative (Negative); Urine Ketones Negative (Negative); Urine Protein Negative (Neg-Trace)
[2022-09-14 11:49] LABS: Basophils Percent Auto 0.4 % (0-2); Eosinophils Absolute Auto 0.3 X10*3/uL (0.0-0.4); Eosinophils Percent Auto 3.7 % (0-4); Hemoglobin 14.3 g/dl (14.0-18.0); Imm Gran Abs Auto 0.07 X10*3/uL (0.00-0.03); Imm Gran Pct Auto 0.9 % (0.0-0.4); Lymphocytes Absolute Auto 2.3 X10*3/uL (1.2-4.9); Lymphocytes Percent Auto 29.8 % (20-40); Mean Corpuscular HGB Conc 33.3 g/dl (31.0-36.0); Mean Corpuscular Hemoglobin 29.5 pg (27.0-33.0); Mean Corpuscular Volume 88.7 fL (80.0-98.0); Mean Platelet Volume 11.5 fL (9.4-12.4); Monocytes Absolute Auto 0.6 X10*3/uL (0.1-1.2); Monocytes Percent Auto 7.9 % (2-11); Neutrophils Absolute Auto 4.3 x10*3/uL (2.0-8.3); Neutrophils Percent Auto 57.3 % (45-73); Platelet Count 162 X10*3/uL (160-400); Red Blood Count 4.85 X10*6/uL (4.60-5.80); Red Cell Distribution Width 13.1 % (11.0-16.0); White Blood Count 7.6 X10*3/uL (4.8-10.8)
[2022-09-14 12:13] LABS: Alanine Aminotransferase 37 U/L (0-40); Albumin Level 4.2 g/dL (3.5-5.0); Alkaline Phosphatase 32 U/L (39-117); Anion Gap 11 (12-20); Aspartate Amino Transferase 19 U/L (5-37); Bilirubin Total 1.3 mg/dL (0.0-1.0); Blood Urea Nitrogen 18 mg/dL (9-16); Calcium 8.9 mg/dL (8.4-10.2); Carbon Dioxide 28 mmol/L (22-29); Chloride 107 mmol/L (96-108); Cholesterol 207 mg/dL; Estimated Glomerular Filt Rate > 60; Glucose Fasting 110 mg/dL (60-99); HDL Cholesterol 41 mg/dL; LDL Cholesterol Calculated 148 mg/dl; Potassium 4.1 mmol/L (3.3-5.1); Sodium 142 mmol/L (135-145); Total Protein 6.8 g/dL (6.5-8.0); Triglycerides 94 mg/dL
[2022-09-14 12:17] LABS: TSH reflex Free T4 1.31 uIU/mL (0.32-4.0); Vitamin D 25-OH Total 23.6 ng/mL (>30)
== END 2022-09-14 07:18 | disposition home or self-care (01) ==
LOC: HO.HMGCLDS 07:17
PROVIDERS: PCP Internal Medicine; Visit Provider Internal Medicine
DX: Z00.00 Encounter for general adult medical examination without abnormal findings (principal); E55.9 Vitamin D deficiency, unspecified; I10 Essential (primary) hypertension; E78.00 Pure hypercholesterolemia, unspecified
CPT/HCPCS: 36415; 80053; 80061; 81003; 82306; 84443; 85025

== ENCOUNTER 2022-09-16 10:14 | Outpatient (REF) | payer OTHER, SELFPAY ==
--- NOTE | ~2022-09-16 | XR_ITS ---
EXAMINATION: XR CHEST CLINICAL INFORMATION: J98.8 - Other specified respiratory disorders COMPARISON: Chest radiographs 08/19/2018 TECHNIQUE: 2 views of the chest were obtained. FINDINGS: Lungs clear. No airspace consolidation or groundglass opacity or effusion. The heart is normal in size. The hilar and mediastinal contours are unremarkable. No acute bony abnormality. XR/XR chest 2V IMPRESSION: Unremarkable examination.
== END 2022-09-16 10:15 | disposition home or self-care (01) ==
LOC: HO.HMGCX 10:14
PROVIDERS: PCP Internal Medicine; Visit Provider Internal Medicine
DX: J98.8 Other specified respiratory disorders (principal); R05.9 Cough, unspecified
CPT/HCPCS: 71046

== ENCOUNTER 2022-12-08 07:55 | Outpatient (AMB) | payer OTHER, SELFPAY ==
--- NOTE | 2022-12-08 08:03 | MHC.OFFVIS ---
Intake Vital Signs 12/08/22 08:05 Height 6 ft Weight 338 lb 8 oz BMI 45.9 BP 148/92 H Blood Pressure Location Rt brachial Position Sitting Pulse 78 Pulse Source Pulse Oximeter Pulse Oximetry (%) 97 Intake Visit Reasons: NPV-MARGI Intake Note: Patient presents for new patient evaluation for MARGI Allergies penicillin G Allergy (Severe, Verified 12/08/22 08:08) anaphylaxis Penicillins [PENICILLINS] Allergy (Unknown, Verified 12/08/22 08:08) UNKNOWN lisinopril Adverse Reaction (Intermediate, Verified 12/08/22 08:08) Cough HPI HPI Comments History of Present Illness Details 41 y/o male patient presents for new in-person visit for sleep consultation. Pt reports that he snores, has gasping arousals 5-10 times at night, and non refreshing sleep. Pt did not have sleep study done, but he bought a CPAP by online 2 years ago and tried it. He uses CPAP at [id number] and noticed that he sleeps much better, and his daytime symptoms has improved. He states that he can't sleep without CPAP now. Sleep questionnaire: Have you ever been diagnosed with a sleep disorder? No. Have you ever had a sleep study in the past? No. Have you ever been treated for a sleep disorder? CPAP. Do you take medications for a sleep disorder? No. Do you snore? Yes. Do you wake up gasping at night? Yes. Do you have episodes of apneas? Yes. If yes, are they witnessed? No. Do you have episodes of nocturnal chest pain or dyspnea? Yes. Do you have difficulty initiating sleep? Yes. Do you have difficulty maintaining sleep? Yes. Do you wake up tired? Yes. Do you have headaches upon awakening? Yes. Do you wake up with dry mouth or throat? Yes. Do you have GERD? Yes. Do you have nocturia? No. Do you have nocturnal leg cramps? No. Do you have symptoms of restless legs? No. Do you act out your dreams? No. Sleep hygiene questionnaire: What is your usual sleep routine? Usual bedtime is at 10 pm; Usual wake up time is at 5:30 am. Do you take naps? No. Is your sleep environment cool, dark, and quiet? Yes. Do you exercise? Walking. Do you take caffeine or other stimulants? 3 big cup of coffee a day. Do you use electronics in bed? Yes. What is your work schedule? 7 days a week, day shift. Hypersomnolence questionnaire: Do you have daytime tiredness or fatigue? Yes. Do you easily fall asleep when inactive? No. Have you ever had episodes of sudden weakness? No. Have you ever had episodes of sudden weakness associated with strong emotions? No. [facility] Medical History (Updated 12/08/22 @ 08:35 by Blossom Dyson CNP) Benign essential hypertension Impaired fasting glucose Morbid obesity with BMI of 40.0-44.9, adult Obstructive sleep apnea Pure hypercholesterolemia Vitamin D deficiency Surgical History History of bilateral carpal tunnel release (~2005) History of prostate surgery (~04/2019) History of vasectomy (~01/16/22) Hx of left inguinal hernia repair (~2008) Social History Housing: Apartment Alcohol intake: current Alcohol intake frequency: holidays/special occasions only Patient Tobacco Use Status: Never used Tobacco e-Cigarette/Vaping Use: Never Used Second Hand Smoke Exposure: No service: No Current occupational status: employed Cognitive needs: No Hearing needs: No Vision needs: Yes Review of Systems Const All systems reviewed & are unremarkable except as noted in HPI and below ENT Reports Normal hearing present Neuro Reports Normal hearing present Physical Exam Vital Signs: Last Vital Signs Pulse 78 12/08/22 08:05 BP 148/92 H 12/08/22 08:05 Pulse Ox 97 12/08/22 08:05 BMI result Body Mass Index 45.9 Const General: cooperative Nutritional Appearance: obese Orientation/consciousness: patient oriented x3 Neck Neck: Yes full ROM and Yes supple Resp Effort & Inspection: normal respiratory effort and able to speak in complete sentences Neuro General: patient oriented x3, gait normal and moves all extremities Cranial nerves: Yes Bilaterally intact EOM present, Yes Normal facial strength present, Yes Midline tongue present, Yes Symmetric palate elevation present, Yes Normal hearing present, Yes Ability to bilaterally rotate head present and Yes Ability to bilaterally elevate shoulders present Cognition (Neuro): normal cognition Gait exam (Neuro): Normal gait present Motor exam (neuro): 5/5 motor strength present throughout, Pronator motor function not present and no tremor noted Psych Appearance: grossly normal Mental Status: mental status grossly normal Speech and movement: Normal speech and movement present Attitude: cooperative Assessment & Plan Assessment & Plan (1) Snoring: Code(s): R06.83 - Snoring (2) Morbid obesity with BMI of 45.0-49.9, adult: Code(s): E66.01 - Morbid (severe) obesity due to excess calories; Z68.42 - Body mass index [BMI] 45.0-49.9, adult (3) Obstructive sleep apnea: Code(s): G47.33 - Obstructive sleep apnea (adult) (pediatric) Plan Pt is advised to undergo home sleep study to assess for sleep apnea. Will f/u with pt after study to discuss results and appropriate treatment options. Sleep hygiene education provided. Wt reduction advised. Pt to call with any worsening concerns or questions. Orders: Orders RT home sleep study Today E66.01 - Morbid (severe) obesity due to excess calories, G47.33 - Obstructive sleep apnea (adult) (pediatric), R06.83 - Snoring, Z68.42 - Body mass index [BMI] 45.0-49.9, adult Coding Level of Care Code New Pt Level 3 (14788) Diagnoses Snoring R06.83 Morbid obesity with BMI of 45.0-49.9, adult E66.01; Z68.42 Obstructive sleep apnea G47.33
[2022-12-08 08:05] VITALS: BP 148/92; PULSE 78; O2SAT 97; BMI 45.9
== END 2022-12-08 08:51 | disposition home or self-care (01) ==
LOC: HO.HSMC 07:55
PROVIDERS: PCP Internal Medicine; Visit Provider Nurse Practitioner Family
DX: R06.83 Snoring (principal); E66.01 Morbid (severe) obesity due to excess calories; Z68.42 Body mass index [BMI] 45.0-49.9, adult; G47.33 Obstructive sleep apnea (adult) (pediatric)
CPT/HCPCS: 99203

== ENCOUNTER → 2022-12-08 07:55 | Outpatient (BNVA) | payer OTHER, SELFPAY | PROVIDERS: PCP Internal Medicine; Visit Provider Nurse Practitioner Family | DX: G47.33 Obstructive sleep apnea (adult) (pediatric) (principal); R06.83 Snoring; E66.01 Morbid (severe) obesity due to excess calories; Z68.42 Body mass index [BMI] 45.0-49.9, adult | CPT/HCPCS: 99202 ==

== ENCOUNTER 2023-01-14 09:09 | Outpatient (AMB) | payer OTHER, SELFPAY ==
--- NOTE | 2023-01-14 09:42 | MHC.OFFWIV ---
Intake Vital Signs 01/14/23 09:43 Height 6 ft Weight 153.314 kg BMI 45.8 BP 134/78 Blood Pressure Location Rt brachial Position Sitting Pulse 94 Pulse Source Pulse Oximeter Temp 97 F Temp Source Temporal Artery Scan Pulse Oximetry (%) 96 Oxygen Delivery Method Room Air Intake Visit Reasons: EP ingrown hair Intake Note: Pt is here c/o ingrown hair around his groin area. Pt states it is getting bigger and there is discharge coming out of it. Patient Tobacco Use Status: Never used Tobacco Allergies penicillin G Allergy (Severe, Verified 01/14/23 09:44) anaphylaxis Penicillins [PENICILLINS] Allergy (Unknown, Verified 01/14/23 09:44) UNKNOWN lisinopril Adverse Reaction (Intermediate, Verified 01/14/23 09:44) Cough Do you need a note to return to daycare/school/sports/work: No HPI HPI Comments History of Present Illness Details 1005 42-year-old male presents with an ingrown hair to his right mons pubis going on for the past few weeks worsening no has some discharge coming from the area, redness and swelling. He states that this happened to him before and he ended up hospitalized with IV antibiotics because eating care for it. Physical exam significant for a 2 cm x 2 cm indurated region in the right mons pubis with no visualization of ingrown hair, overlying erythema and warmth, a small area appears to have some pus. This is likely folliculitis with ingrown hair with cellulitis. Unlikely necrotizing infection foreigniers gangrene. No sign of abscess at this time, likely developing abscess. Plan at this time I inserted a small 24 gauge needle and de roofed the area where there was pus noted, this area drained, the remainder of the area is indurated, inappropriate to do an incision and drainage of fine needle aspiration. Educated patient on warm compresses discharging him on doxycycline, gave him topical antibiotic ointment. Educated patient on diagnosis and treatment plan, answered all question, patient verbalizes understanding. At this time patient will be discharged home, advised to return with new or worsening symptoms. Educated on worrisome signs and symptoms and when to return. At this time I feel comfortable discharge home. [facility] Medical History Benign essential hypertension Impaired fasting glucose Morbid obesity with BMI of 40.0-44.9, adult Obstructive sleep apnea Pure hypercholesterolemia Vitamin D deficiency Surgical History History of bilateral carpal tunnel release (~2005) History of prostate surgery (~04/2019) History of vasectomy (~01/16/22) Hx of left inguinal hernia repair (~2008) Social History Housing: Apartment Alcohol intake: current Alcohol intake frequency: holidays/special occasions only Patient Tobacco Use Status: Never used Tobacco e-Cigarette/Vaping Use: Never Used Second Hand Smoke Exposure: No service: No Current occupational status: employed Cognitive needs: No Hearing needs: No Vision needs: Yes Review of Systems Const Details: Constitutional : No Fever, No Chills, Cardiovascular : No Chest Pain, No SOB Respiratory : No Dyspnea Gastrointestinal : No abdominal pain Musculoskeletal : No Joint Swelling Skin : No rash, + abscess, No skin laceration Neuro : No Weakness, No Numbness Psych : No SI/HI All systems reviewed & are unremarkable except as noted in HPI and below Physical Exam Vital Signs: Last Vital Signs Temp 97 F 01/14/23 09:43 Pulse 94 01/14/23 09:43 BP 134/78 01/14/23 09:43 Pulse Ox 96 01/14/23 09:43 Oxygen Delivery Method Room Air 01/14/23 09:43 BMI result Body Mass Index 45.8 Vital signs stable Appearance: Alert.? Oriented X3.? No acute distress.? Head: Normocephalic, atraumatic, no step-offs or deformities Eyes: Pupils equal, round and reactive to light.? CVS: Normal heart rate and rhythm.? Pulses normal.? Respiratory: No respiratory distress.? Breath sounds normal.? Abdomen: Soft and nontender.? Skin: Skin warm and dry.? Normal skin color.? Normal skin turgor.? 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 Extremities: No lower extremity edema.? No calf ttp. 5/5 strength to bilateral upper and lower extremities Neuro: Oriented X 3.? No motor deficit.? No sensory deficit. 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 If you were prescribed antibiotics today, it is important that you take your medication to their entirety, do not skip any doses, do not finish them early. Follow-up with your primary care provider this week. Return to the emergency department with new or worsening symptoms. Such as fevers, chills, chest pain, shortness of breath, nausea, vomiting, dizziness, headache, vision changes, lethargy In case of emergency call 911 Medications: New doxycycline hyclate 100 mg PO BID 7 days 14 caps 0RF Coding Level of Care Code Est Pt Level 3 (72876) Diagnoses Ingrown hair L73.1 Cellulitis L03.90
[2023-01-14 09:43] VITALS: BP 134/78; PULSE 94; TEMP 36.1; O2SAT 96; BMI 45.8
== END 2023-01-14 10:24 | disposition home or self-care (01) ==
PROVIDERS: PCP Internal Medicine; Visit Provider Physician Assistant
DX: L73.1 Pseudofolliculitis barbae (principal); L03.90 Cellulitis, unspecified
CPT/HCPCS: 99213

== ENCOUNTER → 2023-02-18 08:53 | Outpatient (REF) | payer OTHER, SELFPAY | LOC: HO.SL 08:53 | PROVIDERS: PCP Internal Medicine; Visit Provider Nurse Practitioner Family | DX: G47.33 Obstructive sleep apnea (adult) (pediatric) (principal); R06.83 Snoring; E66.01 Morbid (severe) obesity due to excess calories; Z68.42 Body mass index [BMI] 45.0-49.9, adult | CPT/HCPCS: 95806 ==

== ENCOUNTER → 2023-02-18 09:25 | Outpatient (BNV) | payer OTHER, SELFPAY | PROVIDERS: PCP Internal Medicine; Visit Provider Psychiatry & Neurology Neurology | DX: R06.83 Snoring (principal) | CPT/HCPCS: 95806 ==

== ENCOUNTER → 2023-04-05 20:30 | Outpatient (BNV) | payer OTHER, SELFPAY | PROVIDERS: PCP Internal Medicine; Visit Provider Psychiatry & Neurology Neurology | DX: G47.33 Obstructive sleep apnea (adult) (pediatric) (principal); G47.61 Periodic limb movement disorder | CPT/HCPCS: 95810 ==

== ENCOUNTER → 2023-04-05 23:02 | Outpatient (REF) | payer OTHER, SELFPAY | LOC: HO.SL 23:02 | PROVIDERS: PCP Internal Medicine; Visit Provider Nurse Practitioner Family | DX: G47.33 Obstructive sleep apnea (adult) (pediatric) (principal); R06.83 Snoring; E66.01 Morbid (severe) obesity due to excess calories; Z68.42 Body mass index [BMI] 45.0-49.9, adult | CPT/HCPCS: 95810 ==

== ENCOUNTER 2023-09-29 10:38 | Outpatient (REF) | payer OTHER, SELFPAY ==
[2023-09-29 13:17] LABS: MANUAL DIFF FLAG NO
[2023-09-29 13:31] LABS: Basophils Percent Auto 0.5 % (0-2); Eosinophils Absolute Auto 0.2 X10*3/uL (0.0-0.4); Eosinophils Percent Auto 3.8 % (0-4); Hematocrit 44.6 % (42.0-52.0); Hemoglobin 15.3 g/dl (14.0-18.0); Imm Gran Abs Auto 0.03 X10*3/uL (0.00-0.03); Imm Gran Pct Auto 0.5 % (0.0-0.4); Lymphocytes Absolute Auto 1.6 X10*3/uL (1.2-4.9); Lymphocytes Percent Auto 27.6 % (20-40); Mean Corpuscular HGB Conc 34.3 g/dl (31.0-36.0); Mean Corpuscular Hemoglobin 29.6 pg (27.0-33.0); Mean Corpuscular Volume 86.3 fL (80.0-98.0); Mean Platelet Volume 10.5 fL (9.4-12.4); Monocytes Absolute Auto 0.5 X10*3/uL (0.1-1.2); Neutrophils Absolute Auto 3.5 x10*3/uL (2.0-8.3); Neutrophils Percent Auto 59.6 % (45-73); Platelet Count 177 X10*3/uL (160-400); Red Blood Count 5.17 X10*6/uL (4.60-5.80); Red Cell Distribution Width 13.3 % (11.0-16.0); White Blood Count 5.8 X10*3/uL (4.8-10.8)
[2023-09-29 13:36] LABS: Appearance Urine Clear; Color Urine Yellow; Glucose Urine UA Negative (Negative); Leukocyte Esterase Urine Trace (Negative); Nitrite Urine Negative (Negative); PH 7.5 (5.0-9.0); Specific Gravity - Urine <= 1.005 (1.005-1.025); UMIC TRIGGER UACC YES; Urine Blood Negative (Negative); Urine Ketones Negative (Negative); Urine Protein Negative (Neg-Trace)
[2023-09-29 13:36] LABS: Estimated Average Glucose 94 mg/dL; Hemoglobin A1c % 4.9 % (<6.0)
[2023-09-29 13:45] LABS: Bacteria Urine None Seen (None Seen); Hyaline Casts Urine 0-2 /LPF (0-2); RBC Urine 0-2 /HPF (0-2); Squamous Epithelial Cell Urine 0-2 /HPF (0-2); WBC Urine 0-5 /HPF (0-5)
[2023-09-29 13:50] LABS: Alanine Aminotransferase 53 U/L (0-40); Albumin Level 4.5 g/dL (3.5-5.0); Alkaline Phosphatase 34 U/L (39-117); Anion Gap 14 (12-20); Aspartate Amino Transferase 27 U/L (5-37); Bilirubin Total 1.2 mg/dL (0.0-1.0); Blood Urea Nitrogen 15 mg/dL (9-16); Calcium 10.2 mg/dL (8.4-10.2); Carbon Dioxide 26 mmol/L (22-29); Chloride 106 mmol/L (96-108); Cholesterol 189 mg/dL (<200); Estimated Glomerular Filt Rate > 60; Glucose Fasting 93 mg/dL (60-99); HDL Cholesterol 44 mg/dL (>40); LDL Cholesterol Calculated 133 mg/dL (<100); Potassium 4.4 mmol/L (3.3-5.1); Sodium 142 mmol/L (135-145); Total Protein 7.6 g/dL (6.5-8.0); Triglycerides 62 mg/dL (<150)
[2023-09-29 13:56] LABS: TSH reflex Free T4 0.92 uIU/mL (0.32-4.0)
== END 2023-09-29 10:39 | disposition home or self-care (01) ==
LOC: HO.HMGCLDS 10:38
PROVIDERS: PCP Internal Medicine; Visit Provider Internal Medicine
DX: E55.9 Vitamin D deficiency, unspecified (principal); E78.00 Pure hypercholesterolemia, unspecified; R73.01 Impaired fasting glucose; I10 Essential (primary) hypertension
CPT/HCPCS: 36415; 80053; 80061; 81001; 82306; 83036; 84443; 85025

== ENCOUNTER 2023-12-14 14:20 | Outpatient (AMB) | payer OTHER, SELFPAY ==
--- NOTE | 2023-12-14 14:21 | AM.OFFWIN_ITS ---
Intake Vital Signs 12/14/23 14:22 Height 6 ft Weight 338 lb BMI 45.8 BP 150/80 H Blood Pressure Location Lt brachial Position Sitting Pulse 87 Pulse Source Pulse Oximeter Temp 98.0 F Temp Source Temporal Artery Scan Pulse Oximetry (%) 98 Intake Visit Reasons: EP redness swelling groin area Intake Note: pt is here for redness and swelling groin area, suspects STD. patient had intercourse recently and rash and discomfort in genital area Patient Tobacco Use Status: Never used Tobacco Allergies penicillin G Allergy (Severe, Verified 12/14/23 14:22) anaphylaxis Penicillins [PENICILLINS] Allergy (Unknown, Verified 12/14/23 14:22) UNKNOWN lisinopril Adverse Reaction (Intermediate, Verified 12/14/23 14:22) Cough Do you need a note to return to daycare/school/sports/work: No HPI HPI Comments History of Present Illness Details He presents to office with redness to penis States ongoing for a week No trauma or injury Symptoms come and go and worse after intercourse Tried hydrocortisone to region with some relief Minimal burning without discharge + redness to distal foreskin and proxima l shaft States had some aching in testicles which resolved No testicular edema, redness or pain No dysuria, frequency or urgency that differs from baseline post TURP No known STD exposure but would like to be checked No hx diabetes PFSH Medical History Benign essential hypertension Impaired fasting glucose Morbid obesity with BMI of 40.0-44.9, adult Obstructive sleep apnea Pure hypercholesterolemia Vitamin D deficiency Surgical History History of bilateral carpal tunnel release (~2005) History of prostate surgery (~04/2019) History of vasectomy (~01/16/22) Hx of left inguinal hernia repair (~2008) Social History Housing: Apartment Alcohol intake: current Alcohol intake frequency: holidays/special occasions only Patient Tobacco Use Status: Never used Tobacco e-Cigarette/Vaping Use: Never Used Second Hand Smoke Exposure: No service: No Current occupational status: employed Cognitive needs: No Hearing needs: No Vision needs: Yes Review of Systems Const Denies chills and Denies fever(s) GI Denies abdominal pain Denies hematuria, Reports difficulty urinating (baseline post TURP), Denies genital lesions (redness but no painful small bumps), Denies dysuria, Denies penile discharge, Reports testicular pain (previously intermittent. No current pain), Denies urinary frequency, Denies urinary hesitancy, Denies urinary incontinence and Denies urinary urgency Skin/Breast Reports erythema (penile foreskin) Physical Exam Vital Signs: Last Vital Signs Temp 98.0 F 12/14/23 14:22 Pulse 87 12/14/23 14:22 BP 150/80 H 12/14/23 14:22 Pulse Ox 98 12/14/23 14:22 BMI result Body Mass Index 45.8 General: Non-toxic, NAD. Speaking full sentences. Skin: Warm dry throughout : There is dry very slightly erythematous skin to distal aspect of foreskin and anterior testicles. No warmth, discharge, vesicles or head of penis edema. No discharge from os. No foreskin edema Eye: EOMI Respiratory: No respiratory distress MSK: Full ROM extremities. Neurology: A/O. No aphasia or facial droop. Gait without abnormality Psych: Good mood and affect Assessment & Plan Assessment & Plan (1) Dysuria: Code(s): R30.0 - Dysuria Plan: Patient seen and evaluated. States he would like to be checked for STDs. GC and chlamydia sent Yeast culture obtained and sent but rash appears fungal in nature Ketoconazole to pharmacy Discussed care and when to call office for follow up Discussed symptoms that require ER evaluation Patient gave verbal understanding and had no additional questions or concerns at time of discharge All questions answered (2) Penile rash: Code(s): R21 - Rash and other nonspecific skin eruption Plan: see above Orders: Orders CT NG by PCR Today R30.0 - Dysuria Fungus Cult Hair/Skin/Nail Today R21 - Rash and other nonspecific skin eruption Medications: New ketoconazole 2% 1 appl topical DAILY 60 grams 0RF 14 days Coding Level of Care Code Est Pt Level 3 (19307) Diagnoses Dysuria R30.0 Penile rash R21
[2023-12-14 14:22] VITALS: BP 150/80; PULSE 87; TEMP 36.7; O2SAT 98; BMI 45.8
== END 2023-12-14 15:33 | disposition home or self-care (01) ==
PROVIDERS: PCP Internal Medicine; Visit Provider Physician Assistant
DX: R30.0 Dysuria (principal); R21 Rash and other nonspecific skin eruption
CPT/HCPCS: 99213

== ENCOUNTER 2023-12-14 15:05 | Outpatient (REF) | payer OTHER, SELFPAY ==
[2023-12-15 12:14] LABS: CT PCR NOT DETECTED (Not Detect.); NG PCR NOT DETECTED (Not Detect.)
== END 2023-12-14 15:06 | disposition home or self-care (01) ==
LOC: HO.LAB 15:05
PROVIDERS: Visit Provider Physician Assistant
DX: R30.0 Dysuria (principal)
CPT/HCPCS: 87491; 87591

== ENCOUNTER 2023-12-22 13:00 | Outpatient (AMB) | payer OTHER, SELFPAY ==
--- NOTE | 2023-12-22 13:06 | AM.OFFWIN_ITS ---
Intake Vital Signs 12/22/23 13:07 Height 6 ft Weight 338 lb BMI 45.8 BP 136/88 Blood Pressure Location Rt brachial Position Sitting Pulse 66 Pulse Source Pulse Oximeter Temp 98.2 F Temp Source Oral Pulse Oximetry (%) 98 Oxygen Delivery Method Room Air Intake Visit Reasons: redness and swelling in groin area Intake Note: pt c/o redness and swelling in groin area Patient Tobacco Use Status: Never used Tobacco Allergies penicillin G Allergy (Severe, Verified 12/22/23 13:06) anaphylaxis Penicillins [PENICILLINS] Allergy (Unknown, Verified 12/22/23 13:06) UNKNOWN lisinopril Adverse Reaction (Intermediate, Verified 12/22/23 13:06) Cough Do you need a note to return to daycare/school/sports/work: No HPI HPI Comments History of Present Illness Details This is a 43-year-old male presenting for re-evaluation of redness and irritation on his distal penis and foreskin for which he was initially evaluated last week. 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 Patient reports that the sweating he experienced made his symptoms worse last night. Patient denies having any fevers, chills, penile discharge, dysuria, urinary frequency and tested negative last week for both gonorrhea and chlamydia. [facility] Medical History Benign essential hypertension Impaired fasting glucose Morbid obesity with BMI of 40.0-44.9, adult Obstructive sleep apnea Pure hypercholesterolemia Vitamin D deficiency Surgical History History of bilateral carpal tunnel release (~2005) History of prostate surgery (~04/2019) History of vasectomy (~01/16/22) Hx of left inguinal hernia repair (~2008) Social History Housing: Apartment Alcohol intake: current Alcohol intake frequency: holidays/special occasions only Patient Tobacco Use Status: Never used Tobacco e-Cigarette/Vaping Use: Never Used Second Hand Smoke Exposure: No service: No Current occupational status: employed Cognitive needs: No Hearing needs: No Vision needs: Yes Review of Systems Const All systems reviewed & are unremarkable except as noted in HPI and below Denies chills and Denies fever(s) Eyes Reports no additional complaints ENT Reports no additional complaints Card Reports no additional complaints Resp Reports no additional complaints GI Reports no additional complaints Reports no additional complaints Musc Reports no additional complaints Skin/Breast Reports erythema (foreskin) Neuro Reports no additional complaints Psych Reports no additional complaints Endo Reports no additional complaints Milo/Lymph Reports no additional complaints Aller/Immun Reports no additional complaints Physical Exam Vital Signs: Last Vital Signs Temp 98.2 F 12/22/23 13:07 Pulse 66 12/22/23 13:07 BP 136/88 12/22/23 13:07 Pulse Ox 98 12/22/23 13:07 Oxygen Delivery Method Room Air 12/22/23 13:07 BMI result Body Mass Index 45.8 Const General: cooperative, healthy appearing, comfortable, no acute distress, well developed, alert, awake and Physically active Nutritional Appearance: obese Orientation/consciousness: oriented to person Limitations: no limitations Male General Exam: Yes edema (very mild edema dorsal foreskin with overlying mild erythema), No lacerations and No Genital lesions present Penis: normal penis, uncircumcised, not edematous, not erythematous, no paraphimosis, no phimosis, no swelling, No Genital lesions present and other (no penile lesions, edema, excoriations) Meatus: meatus normal, no meatla discharge, No Blood at meatus present and No Erythema at meatus Scrotum: scrotum normal, not edematous, not erythematous and testes descended bilaterally Testes: Testes normal Neuro General: oriented to person Psych Appearance: grossly normal Mental Status: mental status grossly normal Insight: Good insight present (Psych) Judgement: Good judgement present (Psych) Assessment & Plan Assessment & Plan (1) Foreskin inflammation: Comment: Previous walk-in visit is reviewed as well as testing results. No worsening of symptoms at this time. Code(s): N48.29 - Other inflammatory disorders of penis Plan: Continue ketoconazole twice daily for the next 10-14 days. Follow up with PCP as needed. Medications: New ketoconazole 2% 1 appl topical BID 30 grams 1RF Coding Level of Care Code Est Pt Level 3 (65779) Diagnoses Foreskin inflammation N48.29 Time Spent (min) 20
[2023-12-22 13:07] VITALS: BP 136/88; PULSE 66; TEMP 36.8; O2SAT 98; BMI 45.8
== END 2023-12-22 14:35 | disposition home or self-care (01) ==
PROVIDERS: PCP Internal Medicine; Visit Provider Physician Assistant
DX: N48.29 Other inflammatory disorders of penis (principal)
CPT/HCPCS: 99213

== ENCOUNTER 2024-02-07 14:29 | Outpatient (AMB) | payer OTHER, SELFPAY ==
[2024-02-07 14:34] VITALS: BP 132/86; PULSE 77; O2SAT 97; BMI 39.7
--- NOTE | 2024-02-07 14:34 | MHC.PC.OV ---
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 Justice Required: No Accompanied by: Self / Same As Patient Allergies penicillin G Allergy (Severe, Verified 02/07/24 15:01) anaphylaxis Penicillins [PENICILLINS] Allergy (Unknown, Verified 02/07/24 15:01) UNKNOWN lisinopril Adverse Reaction (Intermediate, Verified 02/07/24 15:01) Cough Medication List - Last Reconciled 02/07/24 by Smith Asencio MD ketoconazole 2% 1 appl topical BID Tobacco use date assessed: 02/07/24 Dental Screening Dental Screen Date: 02/07/24 Did you have a dental visit in the last 12 months?: No Did you have a dental problem in the last 6 months where you did not have access to dental care?: No Was dental information given to patient?: No HPI PE HPI Details Patient comes in today for his annual physical examination States that he feels okay He has lost over 40 pounds of weight over the past couple of months - states that he has just been watching his diet and cut back on the amount of food that he normally eats and has also been doing intermittent fasting over the past several weeks Notes that he feels a lot better overall with his weight loss Has also noticed that his blood pressure has improved a lot since He denies any headaches or dizziness Denies any chest pains, no SOB No nausea/vomiting, no abdominal pain No change in bowel habits noted He denies any acute urinary symptoms but states that he's had a small and slightly painful nodular lesion on the bottom of his penile shaft for almost a week now and is wondering what he can do to get this cleared up He had his recent labs done back in September 2023 - to discuss his results [facility] Medical History (Updated 02/08/24 @ 09:27 by Smith Asecnio MD) Obesity (BMI 30-39.9) Vitamin D deficiency Impaired fasting glucose Obstructive sleep apnea Morbid obesity with BMI of 40.0-44.9, adult Pure hypercholesterolemia Benign essential hypertension Surgical History History of prostate surgery (~04/2019) History of vasectomy (~01/16/22) History of bilateral carpal tunnel release (~2005) Hx of left inguinal hernia repair (~2008) Social History Housing: Apartment Alcohol intake: current Alcohol intake frequency: holidays/special occasions only Patient Tobacco Use Status: Never used Tobacco e-Cigarette/Vaping Use: Never Used Second Hand Smoke Exposure: No service: No Current occupational status: employed Cognitive needs: No Hearing needs: No Vision needs: Yes Questionnaire PHQ-9 Over the last 2 weeks, how often have you been bothered by any of the following problems? 1. Little interest or pleasure in doing things: not at all 2. Feeling down, depressed, or hopeless: not at all 3. Trouble falling or staying asleep, or sleeping too much: not at all 4. Feeling tired or having little energy: not at all 5. Poor appetite or overeating: not at all 6. Feeling bad about yourself - or that you are a failure or have let yourself or your family down: not at all 7. Trouble concentrating on things, such as reading the newspaper or watching television: not at all 8. Moving or speaking so slowly that other people could have noticed. Or the opposite - being so fidgety or restless that you have been moving around a lot more than usual: not at all 9. Thoughts that you would be better off or of hurting yourself in some way: not at all Total score: 0 Depression Screening Interpretation: Negative Depression Screening Done: Yes 59172 - PHQ-9 Billing: Yes Source: Developed by Drs. Param Arellano, Brittany Vila, Maynor Kessler and colleagues, with an educational meron from [email or web address]. Thrive Questionnaire Date Thrive assessed: 02/07/24 I am a: Patient What is your living situation today?: I have a steady place to live Within the past 12 months, did the food you bought not last and you didn't have the money to get more?: Never true Within the past 12 months, did you worry whether your food would run out before you got money to buy more?: Never true Do you have trouble paying for medicines?: No Do you have trouble getting transportation to medical appointments?: No Do you have trouble paying your heating and electricity bill?: No Do you have trouble taking care of your child, family member or friend?: No Do you have trouble with day-to-day activities such as bathing, preparing meals, shopping, managing finances, etc.?: No Are you currently unemployed and looking for a job?: No Are you interested in more education?: No Please select the resources that you would like help with: None Currently or been in a relationship where the following occur: No concerns reported THRIVE Score: 0 AUDIT C Alcohol Use Questionnaire (AUDIT-C) 1. How often do you have a drink containing alcohol?: Monthly or less 2. How many drinks containing alcohol do you have on a typical day when you are drinking?: 1 or 2 3. How often do you have six or more drinks on one occasion?: Never Total Score: 1 Score Reviewed/Action Taken: Yes TEODORO-7 AMB Questionnaire TEODORO-7 Date TEODORO - 7 assessed: 02/07/24 Feeling nervous, anxious, or on edge: 0 = Not at all Not being able to stop or control worryin = Not at all Worrying too much about different things: 0 = Not at all Trouble relaxin = Not at all Being so restless that it is hard to sit still: 0 = Not at all Becoming easily annoyed or irritable: 0 = Not at all Feeling afraid as if something awful might happen: 0 = Not at all Total TEODORO-7 score (0-4 normal; 5-9 mild; 10-14 moderate; 15-21 severe): 0 Source: Developed by Drs. Param Arellano, Brittany Vila, Maynor Kessler and colleagues, with an educational meron from [email or web address]. Review of Systems Const Denies chills, Denies fatigue, Denies fever(s), Denies headache(s), Denies malaise and Denies weakness Eyes Denies blurry vision, Denies change in vision, Denies irritation and Denies itchy eyes ENT Denies dysphagia, Denies dizziness, Denies otalgia, Denies headache(s), Denies nasal congestion, Denies neck pain, Denies odynophagia and Denies sore throat Card Denies chest pain, Denies rapid heart rate, Denies irregular heart rhythm, Denies palpitations and Denies dyspnea Resp Denies chest congestion, Denies cough, Denies dyspnea and Denies wheezing GI Denies abdominal pain, Denies bloating, Denies constipation, Denies dysphagia, Denies heartburn, Denies diarrhea, Denies nausea, Denies odynophagia and Denies vomiting Details: (+) small and slightly painful nodule on the bottom of his penile shaft Denies hematuria, Denies difficulty urinating, Denies dysuria, Denies urinary frequency and Denies urinary urgency Musc Denies back pain, Denies arthralgias, Denies joint swelling, Denies muscle weakness and Denies neck pain Skin/Breast Denies change in pigmentation, Denies lesions, Denies rash and Denies unusual bruising Neuro Denies dizziness, Denies headache(s), Denies paresthesias and Denies weakness Endo Denies fatigue and Denies palpitations Aller/Immun Denies itchy eyes and Denies wheezing Physical exam (Primary Care) Vital Signs: Last Vital Signs Pulse 77 02/07/24 14:34 BP 132/86 02/07/24 14:34 Pulse Ox 97 02/07/24 14:34 Oxygen Delivery Method Room Air 02/07/24 14:34 BMI result Body Mass Index 39.7 Tobacco/Smoking Status: Tobacco use Status Tobacco use date assessed 02/07/24 02/07/24 14:40 Patient Tobacco Use Status Never used Tobacco 02/07/24 14:40 e-Cigarette/Vaping Use Never Used 02/07/24 14:40 PHQ-9: PHQ-9 Score PHQ-9: Total score 0 02/07/24 15:04 Depression Screening Interpretation: Negative Thrive Assessment: Date of Thrive Assessment Date Thrive assessed 02/07/24 02/07/24 14:40 Currently or been in a relationship where the following occur: No concerns reported Const General: no acute distress, alert and awake Orientation/consciousness: patient oriented x3 HENMT Head: Yes normocephalic and Yes atraumatic Ears: external ears normal, TM's normal bilaterally and EAC's normal General nose exam: No nasal discharge present Face and sinus: Yes normal facial exam and Yes sinuses nontender Teeth and gingiva: dentition normal Throat: Yes posterior oropharynx normal and Yes tonsils normal (no TP congestion) Eyes Eyelids: Yes eyelids normal Conjunctivae: conjunctivae normal Pupils: Equal, round and reactive pupils present EOM: EOMs intact bilaterally Neck Neck: Yes no lymphadenopathy and Yes supple Thyroid: Thyroid normal Resp Auscultation: clear to auscultation bilaterally, no rales and no wheezes Cardio Rate: regular rate Rhythm: regular rhythm Heart sounds: no murmurs GI Palpation (GI): Soft to palpation, nontender and No hepatosplenomegaly present Auscultation: normal bowel sounds Other: (+) small nodular lesion on the ventral aspect of the penile shaft near the base; lesion is slightly tender on palpation General: Yes no CVA tenderness Back/Spine/Pelvis Back: no CVA tenderness Thoracic/Lumbar Spine: thoracic and lumbar spine normal to inspection Skin Lesions: no lesions Rashes: no rashes Neuro General: patient oriented x3, moves all extremities, no focal motor deficits and CN's II-XI intact bilaterally Cranial nerves: Yes Equal, round and reactive pupils present Cognition (Neuro): normal cognition Gait exam (Neuro): Normal gait present Extrem General: Yes no clubbing, cyanosis or edema Results Reviewed Results Reviewed: Laboratory Tests 09/29/23 09/29/23 11:35 11:40 WBC 5.8 Hgb 15.3 Hct 44.6 Plt Count 177 Sodium 142 Potassium 4.4 Creatinine 0.83 Estimated GFR > 60 Fasting Glucose 93 Hemoglobin A1c % 4.9 Calcium 10.2 D AST 27 ALT 53 H Triglycerides 62 Cholesterol 189 LDL Cholesterol, Calc 133 H HDL Cholesterol 44 25-OH Vitamin D Total 50.0 TSH 0.92 Ur Specific Jeremiah <= 1.005 Urine Protein Negative Urine Glucose (UA) Negative Urine Blood Negative Urine Nitrite Negative Ur Leukocyte Esterase Trace H Assessment and Plan Assessment & Plan (1) Annual physical exam: Code(s): Z00.00 - Encounter for general adult medical examination without abnormal findings Plan: Results of his labs done back in September 2023 reviewed and discussed with patient He is now due to start screening colonoscopy for colon cancer and will be referred for this (2) Pure hypercholesterolemia: Code(s): E78.00 - Pure hypercholesterolemia, unspecified Plan: He is advised that his cholesterol levels have all improved slightly from previous but his LDL cholesterol is still slightly higher than recommended Reinforced low cholesterol diet Will recheck his fasting lipids in 6 months for follow up (3) Benign essential hypertension: Code(s): I10 - Essential (primary) hypertension Plan: Reinforced low sodium diet - goal is systolic BP of 120 mm or less His BP appears to have improved significantly with his weight loss and he is glad that he will likely not have to start back on blood pressure meds if he continues with his current plan He is reminded to continue monitoring his blood pressure regularly (4) Impaired fasting glucose: Code(s): R73.01 - Impaired fasting glucose Plan: His FBS was normal at 93 mg/dl and his HgbA1c was normal at 4.9% on his labs done a few months ago Reinforced low calorie/low carb diet - have advised him that his blood sugar should continue to stay normal if he can continue with his current diet modification, weight loss and staying active (5) Obstructive sleep apnea: Code(s): G47.33 - Obstructive sleep apnea (adult) (pediatric) Plan: Patient previously was using a CPAP device at 13cm H2O when he was sleeping at night He was referred to Sleep Medicine then for further evaluation regarding his MARGI and CPAP use An in-home sleep study done last year came out inconclusive and he went on to get an in-lab sleep study a few weeks later, which revealed (+) mild MARGI but noted frequent periodic limb movements when he was asleep He was started on a trial of auto-Pap between 5 to 20 cm H2O, which he has been on since He is hoping to be able to stop using his device soon if he continues to shed his extra weight Follow up with Sleep Medicine as scheduled (6) Vitamin D deficiency: Code(s): E55.9 - Vitamin D deficiency, unspecified Plan: Continue OTC Vitamin D3 2000 units QD (7) Folliculitis: Code(s): L73.9 - Follicular disorder, unspecified Plan: Nodular lesion is over the ventral aspect of the penile shaft near the frenulum of the penis Advised patient that this is likely a folliculitis or pseudofolliculitis Will start him empirically on oral Doxycycline 100 mg BID x 7 days Have advised patient to reach out to us again if this does not improve with Abx Tx over the next week (8) Insomnia: Code(s): G47.00 - Insomnia, unspecified Qualifiers: Insomnia type: unspecified Qualified Code(s): G47.00 - Insomnia, unspecified Plan: Sleep hygiene reinforced He used to take Trazodone 50 mg Q HS PRN but has not needed to do so in a while now (9) Obesity (BMI 30-39.9): Code(s): E66.9 - Obesity, unspecified Plan: Reinforced diet/exercise as tolerated/lose weight He has been able to lose over 40 pounds over the past few months - see HPI for additional info (10) Colon cancer screening: Code(s): Z12.11 - Encounter for screening for malignant neoplasm of colon Plan: Will refer him to GI for screening colonoscopy Plan Follow up in 6 months Orders: Orders Lipid Panel 6 Months E78.00 - Pure hypercholesterolemia, unspecified Comprehensive [place]. Panel Fast 6 Months E78.00 - Pure hypercholesterolemia, unspecified Referrals Gastroenterology Referral Z12.11 - Encounter for screening for malignant neoplasm of colon Medications: New doxycycline hyclate 100 mg PO BID 7 days 14 caps 0RF Coding Level of Care Code Est Pt Prev Care 40-64y(58069) Diagnoses Annual physical exam Z00.00 Pure hypercholesterolemia E78.00 Benign essential hypertension I10 Impaired fasting glucose R73.01 Obstructive sleep apnea G47.33 Vitamin D deficiency E55.9 Folliculitis L73.9 Insomnia, unspecified type G47.00 Insomnia type: unspecified Obesity (BMI 30-39.9) E66.9 Colon cancer screening Z12.11
== END 2024-02-07 15:14 | disposition home or self-care (01) ==
PROVIDERS: PCP Internal Medicine; Visit Provider Internal Medicine
DX: Z00.00 Encounter for general adult medical examination without abnormal findings (principal); E78.00 Pure hypercholesterolemia, unspecified; I10 Essential (primary) hypertension; R73.01 Impaired fasting glucose; G47.33 Obstructive sleep apnea (adult) (pediatric); E55.9 Vitamin D deficiency, unspecified; L73.9 Follicular disorder, unspecified; G47.00 Insomnia, unspecified; E66.9 Obesity, unspecified; Z12.11 Encounter for screening for malignant neoplasm of colon

== ENCOUNTER → 2024-02-07 14:29 | Outpatient (BNVA) | payer OTHER, SELFPAY | PROVIDERS: PCP Internal Medicine; Visit Provider Internal Medicine | DX: Z00.00 Encounter for general adult medical examination without abnormal findings (principal); E78.00 Pure hypercholesterolemia, unspecified; I10 Essential (primary) hypertension; R73.01 Impaired fasting glucose; G47.33 Obstructive sleep apnea (adult) (pediatric); E55.9 Vitamin D deficiency, unspecified; L73.9 Follicular disorder, unspecified; G47.00 Insomnia, unspecified; E66.9 Obesity, unspecified | CPT/HCPCS: 96127; 99396 ==

== ENCOUNTER 2024-10-19 12:50 | Outpatient (AMB) | payer OTHER, SELFPAY ==
--- OUTSIDE RECORDS SUMMARY | 2024-10-19 12:54 | XMS_ITS | Data Portability ---
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 ndonalds Not available 12/18/2021 12:59:39 01/16/2022 01/16/2022 Bilateral no-needle, no-scalpel vasectomy was performed today. The patient was counseled about post-operative recovery recommendations and a handout reminder was provide as well. He will continue to use alternative contraception until the post-operative visit documenting PVSA results. ndonalds Not available 01/16/2022 11:05:12 Plan of Treatment Reminders Order Date Submit Date Provider Last Modified By Organization Details Last Modified Time Details Appointments None record ed. Lab None record ed. Referral None record ed. Procedures None record ed. Surgeries None record ed. Imaging None record ed. Medication Orders None record ed. Patient TargetsNo targets recorded. Patient Instructions Encounter Date Encounter Id Patient Instructions Last Modified By Organization Details Last Modified Time 12/18/2021 [id number] Pre-operative preparation was discussed with the patient and instructions documenting my recommendations were given to the patient. ndonalds Not available 12/18/2021 12:59:39 The patient is h ere today to discuss contraceptive options including bilateral vasectomy for permanent sterilization.. In regard to specifics about vasectomy he reviewed the [facility] video reviewing the details of vasectomy important for consent includin. The permanent nature of vasectomy. 2. The fact that vasectomy offers no protection from sexually transmitted infections. 3. The fact that vasectomy is not effective immediately and that a test to confirm the effectiveness of the procedure is recommended 3 months post-operatively. Not until the procedure is shown to be successful should the patient rely on the vasectomy for contraception. 4. Details about the potential surgical complications including bleeding, infection, sperm granuloma formation, early re-canalization, late re-canalization, change in the risk of epididymitis, and post-vasectomy sensitivity/pain. 5. Instruction on the preparation for the vasectomy including not using aspirin or non-steroidal medications for on week prior to the planned vasectomy, using chlorhexidine soap for skin prep at home. 6. Instruction about the need for appropriate post-operative recovery time including a weekend of couch rest and light activity for one week. He was instructed not to shower for 48 hours and abstain from ejaculation for one week. The fact that testosterone and erections are not affected by vasectomy, and that ejaculate is only slighty reduced was reviewed as well. The consent was signed and received. ndonalds Not available 12/18/2021 12:59:39 01/16/2022 [id number] Post-operative recommendations were discussed with the patient and a handout as provided as well. ndonalds Not available 01/16/2022 11:05:12 Reason for Referral None Reported. Problems No Known Problems Procedures Surgical History Date Name Laterality Status Provider Name and Address Organization Details Recorded Time 01/17/20 22 Vasectomy completed LUIS DANIEL LOVELACE MD [address] [place] [address], [address] [place] [address], [phone], [facility] 01/16/2022 11:16:37 05/24/19 20 Prostate laser enucleation completed LUIS DANIEL LOVELACE MD [address] [facility], [address] [place] [address], [phone], [facility] 12/18/2021 13:19:29 05/24/19 08 Hernia Repair completed Alba Palomino [facility] 12/18/2021 13:02:01 Imaging Results None recorded. Procedure Notes None recorded. Medical Equipment None Reported. Allergies Allergen ID Allergen Name Allergen Category Reaction Reaction Severity Criticality Documentation Date Start Date Code Code System Note Provider Name and Address Organization Details Recorded Time [id number] penicilli n G Not available Not available Not available Not available 12/18/2021 7980 RxNorm Kody Palomino null, [facility] 13:01:43 No known drug allergies Medications Name Sig Start Date Stop Date Status Note LastModified by Organization Details LastModified Time famotidine 20 mg tablet TAKE 1 TABLET BY MOUTH DAILY active Not Available Not Available No t Available ibuprofen 400 mg tablet TAKE 1 TABLET BY MOUTH EVERY 6 HOURS NEEDED FOR MODERATE PAIN active Not Available Not Available No t Available SSD 1 % topical cream APPLY TOPICALLY TO THE AFFECTED AREA DAILY active Not Available Not Available N ot Available amoxicillin 875 mg-potassium clavulanate 125 mg tablet TAKE 1 TABLET BY MOUTH TWICE DAILY active Not Available Not Available No t Available oxycodone 5 mg tablet TAKE 1 TABLET BY MOUTH EVERY 6 HOURS NEEDED FOR PAIN active Not Available Not Available No t Available Vitals None Recorded Social History Question Answer Notes LastModified by Organizat ion Details LastModified Time Tobacco Smoking Status Never Smoker Alba Palomino [place], [place] - [facility] 12/18/2021 13:01:54 In The 14 Days Before Symptom Onset, Have You Had Close Contact With A Laboratory-confirm ed COVID-19 While That Case Was Ill? No Information n ot available 12/18/2021 In The 14 Days Before Symptom Onset, Have You Had Close Contact With A Person Who Is Under Investigation For COVID-19 While That Person Was Ill? No Information not available 12/18/2021 Have You Been To An Area Known To Be High Risk For COVID-19? No Information not available 12/18/2021 What Is The Highest Grade Or Level Of School You Have Completed Or The Highest Degree You Have Received? [id number] Information not available 12/18/2021 Have There Been Any Changes To Your Family Or Social Situation? No Information no t available 12/18/2021 Drug Use? No Information no t available 12/18/2021 How Many Children Do You Have? 0 Information not available 12/18/2021 Are There Any Occupational Health Risks Where You Work? No Information not available 12/18/2021 Do You Use Protection During Sex? Usually Information not available 12/18/2021 What Is Your Relationship Status? Single Information not available 12/18/2021 How Much Tobacco Do You Smoke? No Information not available 12/18/2021 How Many Years Have You Smoked Tobacco? 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 Never used electronic cigarettes Information not available 12/18/2021 What is your exercise level? Occasional Information not available 12/18/2021 Mental Status None recorded. Family History Relationship Description Onset Age of this Age Resolved Age Notes LastModified by Organization Details LastModified Time Father No current problems or disability [email or web address] Not available 12/18 13:18:11 Mother No current problems or disability [email or web address] Not available 12/18 13:18:11 Medical History Condition Response *No Diseases or Conditions Y Past Encounters Encounter ID Performer Location Encounter Start Date Encounter Closed Date Diagnosis/Indication Diagnosis SNOMED-CT Code Diagnosis ICD10 Code Diagnosis Note [id number] LUIS DANIEL LOVELACE MD [id number] [place] [address] 12/18/2021 12:53:15 12/18/2021 14:35:51 Male sterilization 398333724 Z30.2 [id number] LUIS DANIEL LOVELACE MD [id number] [place] [address] 01/16/2022 10:59:56 01/16/2022 11:42:45 Male sterilization 148266393 Z30.2 Health Concerns Section Related Observation LastModified by Organization Detai ls LastModified Time None Recorded Concern Status LastModified by Organization Details LastModified Time None Recorded Advance Directives Directive None Recorded Payers Insurance Date Sequence Insurance Name Policy Number Policy Robles Covered Member ID Robles Member ID Guarantor Name 01/16/2022 1 [facility] [id number] Leif Deng [id number] Leif Deng 01/16/2022 1 *SELF PAY* Wi lola Deng Notes Date Note Type Note Provider Name and Address Organization Details Recorded Time 12/18/2021 text/html [facility] Vasectomy ConsultReported bypatient.Marital Status:Spouse / Partner Name: (); single; Number of children: 0; control method: condoms Location:scrotum trauma no LUIS DANIEL LOVELACE MD [address] [place] [address], [address], [place], [phone], [facility] 12/18/2021 13:29:57 01/16/2022 text/html The patient is h ere today for a bilateral NN/NS vasectomy. His PMFS histories, medications and allergies were reviewed. He was reminded that vasectomy is not effective right away. He was counselled that he should continue to use alternative control until PVSA is completed at the three month post-op visit. LUIS DANIEL LOVELACE MD [address] [place] [address], [address] Floor, [place], [phone], [facility] 01/16/2022 11:30:57
[2024-10-19 13:03] VITALS: BP 132/80; PULSE 78; TEMP 36.7; O2SAT 100
--- NOTE | 2024-10-19 13:03 | MHC.OFFWIV ---
Intake Vital Signs 10/19/24 13:03 Height 6 ft BMI Reason not done Patient refused/unable BP 132/80 Blood Pressure Location Rt brachial Position Sitting Pulse 78 Pulse Source Pulse Oximeter Temp 98.0 F Temp Source Oral Pulse Oximetry (%) 100 Oxygen Delivery Method Room Air Intake Visit Reasons: EP LT foot pain Patient Tobacco Use Status: Never used Tobacco Allergies penicillin G Allergy (Severe, Verified 10/19/24 13:03) anaphylaxis Penicillins [PENICILLINS] Allergy (Unknown, Verified 10/19/24 13:03) UNKNOWN lisinopril Adverse Reaction (Intermediate, Verified 10/19/24 13:03) Cough Do you need a note to return to daycare/school/sports/work: Yes HPI HPI Comments History of Present Illness Details History of Present Illness - The patient is a 43-year-old male presenting with a left foot injury due to tripping on the edge of a dock yesterday. - The patient heard a pop at the time of injury and is unable to bear weight on the front of the left foot since the incident. - Pain is localized to the mid-left area, without significant swelling. - The patient has not used any pain relief measures, such as medications or ice. Physical Exam General: Cooperative, healthy appearing, comfortable, no acute distress and well developed Orientation: Patient oriented x3 Limitations: No limitations Head: Normal to inspection Ears: Hearing grossly normal bilaterally Nose: Normal External nose present Face and sinus: Normal facial exam Eyes: Appearance normal, both eyes and all related structures Neck: Normal visual inspection and Yes full ROM Respiratory: Normal respiratory effort and able to speak in complete sentences. Skin: No rashes or lesions noted Neuro: Patient oriented x3, limping gait Extremities: Full range of motion in the ankle, no ttp lateral or medial malleolus. Full ROM toes and NVI. TTP midfoot, no ecchymosis or erythema or edema in the midfoot. [facility], [facility] Medical History (Updated 10/19/24 @ 13:11 by Chery Bhakta PA-C) Obesity (BMI 30-39.9) Vitamin D deficiency Impaired fasting glucose Obstructive sleep apnea Morbid obesity with BMI of 40.0-44.9, adult Pure hypercholesterolemia Benign essential hypertension Surgical History History of prostate surgery (~04/2019) History of vasectomy (~01/16/22) History of bilateral carpal tunnel release (~2005) Hx of left inguinal hernia repair (~2008) Social History Housing: Apartment Alcohol intake: current Alcohol intake frequency: holidays/special occasions only Patient Tobacco Use Status: Never used Tobacco e-Cigarette/Vaping Use: Never Used Second Hand Smoke Exposure: No service: No Current occupational status: employed Cognitive needs: No Hearing needs: No Vision needs: Yes Review of Systems Const All systems reviewed & are unremarkable except as noted in HPI and below Physical Exam Vital Signs: Last Vital Signs Temp 98.0 F 10/19/24 13:03 Pulse 78 10/19/24 13:03 BP 132/80 10/19/24 13:03 Pulse Ox 100 10/19/24 13:03 Oxygen Delivery Method Room Air 10/19/24 13:03 Assessment & Plan Assessment & Plan (1) Left foot pain: Code(s): M79.672 - Pain in left foot Plan: I will order an X-ray of the left foot to assess for fractures, given the injury mechanism and pain location. Upon completion, the patient will return for further evaluation based on the findings. Correct imaging of the left foot will be ensured. Further management will depend on the X-ray results, potentially including immobilization or specialist referral. My interpretation of foot XR is no fracture or dislocation. Tried boot but not comfortable for patient, I offered crutches but patient declined as he said he would not use them. We Js wrapped it, recommended to use ice, Aleve ATC x3 days then PRN. I will also send Ortho referral if no improvement in pain. Patient was informed and verbally consented to the use of an ambient scribe for clinic note documentation during this visit. Orders: Orders XR foot LT min 3V Today M79.672 - Pain in left foot Referrals Orthopedics Referral M79.672 - Pain in left foot Coding Level of Care Code Est Pt Level 4 (24643) Diagnoses Left foot pain M79.672
== END 2024-10-19 14:10 | disposition home or self-care (01) ==
PROVIDERS: PCP Internal Medicine; Visit Provider Physician Assistant
DX: M79.672 Pain in left foot (principal)

== ENCOUNTER 2024-10-19 12:50 | Outpatient (REF) | payer OTHER, SELFPAY ==
--- NOTE | ~2024-10-19 | XR_ITS ---
EXAMINATION: XR FOOT 3 OR MORE VIEWS LEFT HISTORY: M79.672 - Pain in left foot COMPARISON: Comparison is made with the prior examination dated 05/25/2017. FINDINGS: Three views of the left foot are submitted. Osseous mineralization is normal. There is no fracture or dislocation. There is mild to moderate degenerative change of the 1st MTP joint with joint space narrowing and osteophyte formation. Small marginal erosions are also noted. The remaining joint spaces are maintained. There is a tiny plantar calcaneal spur. The soft tissues are unremarkable. 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 Electronically signed by: Param Cabrera MD 10/19/2024 02:02 PM EDT
== END 2024-10-19 12:51 | disposition home or self-care (01) ==
LOC: HO.HMGCX 12:50
PROVIDERS: PCP Internal Medicine; Visit Provider Physician Assistant
DX: M79.672 Pain in left foot (principal)
CPT/HCPCS: 73630; 99212

== ENCOUNTER → 2024-10-19 13:26 | Outpatient (BNV) | payer OTHER, SELFPAY | PROVIDERS: PCP Internal Medicine; Visit Provider Radiology Diagnostic Radiology | DX: M19.072 Primary osteoarthritis, left ankle and foot (principal) | CPT/HCPCS: 73630 ==

== ENCOUNTER 2024-12-12 09:15 | Outpatient (AMB) | payer OTHER, SELFPAY ==
[2024-12-12 09:19] VITALS: BP 124/86; PULSE 67; O2SAT 99; BMI 39.7
--- NOTE | 2024-12-12 09:19 | A.OFFPC_ITS ---
Vital Signs 12/12/24 09:19 Height 6 ft Weight 292 lb 8 oz BMI 39.7 BP 124/86 Blood Pressure Location Lt brachial Position Sitting Pulse 67 Pulse Source Pulse Oximeter Pulse Oximetry (%) 99 Oxygen Delivery Method Room Air Intake Visit Reasons: 6 Month F/U [employer] Required: No Accompanied by: Self / Same As Patient Allergies penicillin G Allergy (Severe, Verified 12/12/24 09:28) anaphylaxis Penicillins (PENICILLINS) Allergy (Unknown, Verified 12/12/24 09:28) UNKNOWN lisinopril Adverse Reaction (Intermediate, Verified 12/12/24 09:28) Cough Medication List - Last Reconciled 12/12/24 by Smith Asencio MD No Known Home Meds Tobacco use date assessed: 12/12/24 Dental Screening Dental Screen Date: 12/12/24 Did you have a dental visit in the last 12 months?: Yes Did you have a dental problem in the last 6 months where you did not have access to dental care?: No Was dental information given to patient?: Patient has dentist HPI 6 Month F/U HPI Details Patient comes in today for his follow up visit States that he feels okay although he has a couple of issues that he would like to have evaluated or checked out He denies any headaches or dizziness Denies any chest pains, no SOB but notes (+) persistent chest congestion and recurrent coughing since May 2024 Also describes occasional brief sensations/feeling of rapid heartbeat and metallic taste in his mouth - states that it almost feels like a sensation of 'hypoxia' States that he [place] and is wondering if this may be contributing to whatever he is experiencing He also has MARGI and continues to use his CPAP device when sleeping at night consistently No nausea/vomiting, no abdominal pain No change in bowel habits noted He has no follow up labs done recently - labs were last done in September 2023 He also continues to have the penile lesion that he complained about last year - he was tried on empiric Tx with oral Doxycycline as well as topical Ketoconazole over the past year but he states that they have not made any difference He also has a raised skin lesion on his anterior chest wall that has been present for a while and he would like to see dermatology to have this checked out as well [facility] Medical History Obesity (BMI 30-39.9) Vitamin D deficiency Impaired fasting glucose Obstructive sleep apnea Morbid obesity with BMI of 40.0-44.9, adult Pure hypercholesterolemia Benign essential hypertension Surgical History History of prostate surgery (~04/2019) History of vasectomy (~01/16/22) History of bilateral carpal tunnel release (~2005) Hx of left inguinal hernia repair (~2008) Social History Housing: Apartment Alcohol intake: current Alcohol intake frequency: holidays/special occasions only Patient Tobacco Use Status: Never used Tobacco e-Cigarette/Vaping Use: Never Used Second Hand Smoke Exposure: No service: No Current occupational status: employed Cognitive needs: No Hearing needs: No Vision needs: Yes Questionnaire PHQ-9 Over the last 2 weeks, how often have you been bothered by any of the following problems? 1. Little interest or pleasure in doing things: not at all 2. Feeling down, depressed, or hopeless: not at all 3. Trouble falling or staying asleep, or sleeping too much: not at all 4. Feeling tired or having little energy: not at all 5. Poor appetite or overeating: not at all 6. Feeling bad about yourself - or that you are a failure or have let yourself or your family down: not at all 7. Trouble concentrating on things, such as reading the newspaper or watching television: not at all 8. Moving or speaking so slowly that other people could have noticed. Or the opposite - being so fidgety or restless that you have been moving around a lot more than usual: not at all 9. Thoughts that you would be better off or of hurting yourself in some way: not at all Total score: 0 Depression Screening Interpretation: Negative Depression Screening Done: Yes 85788 - PHQ-9 Billing: Yes Source: Developed by Drs. Param Arellano, Brittany Vila, Maynor Kessler and colleagues, with an educational meron from [employer]. Thrive Questionnaire Date Thrive assessed: 12/12/24 I am a: Patient What is your living situation today?: I choose not to answer this question Within the past 12 months, did the food you bought not last and you didn't have the money to get more?: I choose not to answer this question Within the past 12 months, did you worry whether your food would run out before you got money to buy more?: I choose not to answer this question Do you have trouble paying for medicines?: I choose not to answer this question Do you have trouble getting transportation to medical appointments?: I choose not to answer this question Do you have trouble paying your heating and electricity bill?: I choose not to answer this question Do you have trouble taking care of your child, family member or friend?: I choose not to answer this question Do you have trouble with day-to-day activities such as bathing, preparing meals, shopping, managing finances, etc.?: I choose not to answer this question Are you currently unemployed and looking for a job?: I choose not to answer this question Are you interested in more education?: I choose not to answer this question Please select the resources that you would like help with: None Currently or been in a relationship where the following occur: I choose not to answer THRIVE Score: 0 AUDIT C Alcohol Use Questionnaire (AUDIT-C) 1. How often do you have a drink containing alcohol?: Never 3. How often do you have six or more drinks on one occasion?: Never Total Score: 0 Score Reviewed/Action Taken: Yes TEODORO-7 AMB Questionnaire TEODORO-7 Date TEODORO - 7 assessed: 12/12/24 Feeling nervous, anxious, or on edge: 0 = Not at all Not being able to stop or control worryin = Not at all Worrying too much about different things: 0 = Not at all Trouble relaxin = Not at all Being so restless that it is hard to sit still: 0 = Not at all Becoming easily annoyed or irritable: 0 = Not at all Feeling afraid as if something awful might happen: 0 = Not at all Total TEODORO-7 score (0-4 normal; 5-9 mild; 10-14 moderate; 15-21 severe): 0 Source: Developed by Drs. Param Arellano, Brittany Vila, Maynor Kessler and colleagues, with an educational meron from [employer]. Review of Systems Const Denies chills, Denies fatigue, Denies fever(s) and Denies headache(s) ENT Denies dysphagia, Denies dizziness, Denies otalgia, Denies headache(s), Denies neck pain, Denies odynophagia and Denies sore throat Card Denies chest pain, Denies rapid heart rate, Denies irregular heart rhythm, Denies palpitations and Reports dyspnea on exertion (mild, at times) Resp Reports as per HPI, Reports chest congestion (occasional sensations - see HPI), Denies cough, Reports dyspnea on exertion (mild, at times) and Denies wheezing GI Denies abdominal pain, Denies constipation, Denies dysphagia, Denies heartburn, Denies diarrhea, Denies nausea, Denies odynophagia and Denies vomiting Details: (+) small and slightly painful nodule on the bottom of his penile shaft Denies difficulty urinating, Denies dysuria and Denies urinary frequency Musc Denies back pain, Denies arthralgias and Denies neck pain Skin/Breast Details: (+) small raised papular lesion over the anterior chest wall Denies rash Neuro Denies dizziness, Denies headache(s) and Denies paresthesias Endo Denies fatigue and Denies palpitations Aller/Immun Denies wheezing Physical exam (Primary Care) Vital Signs: Last Vital Signs Pulse 67 12/12/24 09:19 BP 124/86 12/12/24 09:19 Pulse Ox 99 12/12/24 09:19 Oxygen Delivery Method Room Air 12/12/24 09:19 BMI result Body Mass Index 39.7 Tobacco/Smoking Status: Tobacco use Status Tobacco use date assessed 12/12/24 12/12/24 09:23 Patient Tobacco Use Status Never used Tobacco 12/12/24 09:23 e-Cigarette/Vaping Use Never Used 12/12/24 09:23 PHQ-9: PHQ-9 Score PHQ-9: Total score 0 12/12/24 09:25 Depression Screening Interpretation: Negative Thrive Assessment: Date of Thrive Assessment Date Thrive assessed 12/12/24 12/12/24 09:23 Currently or been in a relationship where the following occur: I choose not to answer Const General: no acute distress and alert HENMT Ears: TM's normal bilaterally and EAC's normal Throat: Yes posterior oropharynx normal and Yes tonsils normal (no TP congestion) Neck Neck: Yes supple and No lymphadenopathy Thyroid: Thyroid normal Resp Auscultation: clear to auscultation bilaterally, no rales and no wheezes Cardio Rate: regular rate Rhythm: regular rhythm Heart sounds: no murmurs GI Palpation (GI): Soft to palpation and nontender Auscultation: normal bowel sounds Other: (+) small nodular lesion on the ventral aspect of the penile shaft near the base; lesion is slightly tender on palpation General: Yes no CVA tenderness Back/Spine/Pelvis Back: no CVA tenderness Thoracic/Lumbar Spine: No lumbar spinal tenderness Skin Other: (+) raised papular skin lesion on the anterior chest wall Rashes: no rashes Extrem General: Yes no clubbing, cyanosis or edema Coding Level of Care Code Est Pt Level 4 (88211) Complex EM visit Add On G2211 Diagnoses Pure hypercholesterolemia E78.00 Benign essential hypertension I10 Impaired fasting glucose R73.01 Obstructive sleep apnea G47.33 Dyspnea on exertion R06.09 Vitamin D deficiency E55.9 Penile lesion N48.9 Skin lesion of chest wall L98.9 Insomnia, unspecified type G47.00 Insomnia type: unspecified Obesity (BMI 30-39.9) E66.9 Colon cancer screening Z12.11 Additional Codes PHQ-9 - 49780 - PHQ-9 Billing: Yes ([id number]) Assessment & Plan Assessment & Plan (1) Pure hypercholesterolemia: Code(s): E78.00 - Pure hypercholesterolemia, unspecified Category: Medical Plan: Reinforced low cholesterol diet Will recheck his fasting lipids DEREJE for follow up (2) Benign essential hypertension: Code(s): I10 - Essential (primary) hypertension Category: Medical Plan: Reinforced low sodium diet - goal is systolic BP of 120 mm or less His BP improved significantly with his weight loss last year and he has not needed to be started back on his previous blood pressure meds so far He is reminded to continue monitoring his blood pressure regularly (3) Impaired fasting glucose: Code(s): R73.01 - Impaired fasting glucose Category: Medical Plan: His FBS was normal at 93 mg/dl and his HgbA1c was normal at 4.9% when last checked in September 2023 Will send him for some follow up labs DEREJE Reinforced low calorie/low carb diet - have advised him that his blood sugar should continue to stay normal if he can continue with his current diet modification, weight loss and staying active (4) Obstructive sleep apnea: Code(s): G47.33 - Obstructive sleep apnea (adult) (pediatric) Category: Medical Plan: Patient was previously using a CPAP device at 13cm H2O years ago when he was sleeping at night He was referred to Sleep Medicine then for further evaluation regarding his MARGI and CPAP use In-home sleep study done a couple of years ago came out inconclusive; in-lab sleep study a few weeks later revealed (+) mild MARGI but noted frequent periodic limb movements when he was asleep He was started on a trial of auto-Pap between 5 to 20 cm H2O by sleep medicine, and he has been using the device since (5) Dyspnea on exertion: Code(s): R06.09 - Other forms of dyspnea Category: Medical Plan: Will send him for chest x-rays and PFTs for further evaluation If his chest x-rays and PFTs are unrevealing, will then consider getting an echocardiogram as well as stress testing to further work up his symptoms (6) Vitamin D deficiency: Code(s): E55.9 - Vitamin D deficiency, unspecified Category: Medical Plan: Continue OTC Vitamin D3 2000 units QD (7) Penile lesion: Code(s): N48.9 - Disorder of penis, unspecified Category: Medical Plan: S/P empiric Tx with oral Doxycycline and topical Ketoconazole without any improvement Will refer him to dermatology for further evaluation and management (8) Skin lesion of chest wall: Code(s): L98.9 - Disorder of the skin and subcutaneous tissue, unspecified Category: Medical Plan: Will also refer him to dermatology for further evaluation of this issue (9) Insomnia: Code(s): G47.00 - Insomnia, unspecified Category: Medical Qualifiers: Insomnia type: unspecified Qualified Code(s): G47.00 - Insomnia, unspecified Plan: Sleep hygiene reinforced He used to take Trazodone 50 mg Q HS PRN but has not needed to do so in a while now (10) Obesity (BMI 30-39.9): Code(s): E66.9 - Obesity, unspecified Category: Medical Plan: Reinforced diet/exercise as tolerated/lose weight (11) Colon cancer screening: Code(s): Z12.11 - Encounter for screening for malignant neoplasm of colon Category: Medical Plan: Will refer patient again for screening colonoscopy - states that he did not receive any call back when he was referred for this last year Plan Follow up in 4 months Orders: Orders XR chest 2V Today J98.8 - Other specified respiratory disorders, R06.09 - Other forms of dyspnea Comprehensive Sherrill. Panel Fast Today E78.00 - Pure hypercholesterolemia, unspecified Lipid Panel Today E78.00 - Pure hypercholesterolemia, unspecified Hemoglobin A1c Today R73.01 - Impaired fasting glucose TSH reflex Free T4 Today E78.00 - Pure hypercholesterolemia, unspecified PFT pulmonary function test Today R06.09 - Other forms of dyspnea Complete Blood Count Auto Diff Today D64.9 - Anemia, unspecified UA CC w/rflx Micro + Cult Today R30.0 - Dysuria Vitamin D 25-OH Total Today E55.9 - Vitamin D deficiency, unspecified Referrals Dermatology Referral N48.9 - Disorder of penis, unspecified Gastroenterology Referral Z12.11 - Encounter for screening for malignant neoplasm of colon
--- OUTSIDE RECORDS SUMMARY | 2024-12-12 09:48 | XMS_ITS ---
Author Name [facility] Organization Unknown History of Medication Use Medication Directions Dispensed Refills Start Date End Date Stat None recorded. (No additional sig information) completed amoxicillin 875 mg-potassium clavulanate 125 mg tablet TAKE 1 TABLET BY MOUTH TWICE DAILY TAKE 1 TABLET BY MOUTH TWICE DAILY completed ibuprofen 400 mg tablet TAKE 1 TABLET BY MOUTH EVERY 6 HOURS NEEDED FOR MODERATE PAIN TAKE 1 TABLET BY MOUTH EVERY 6 HOURS NEEDED FOR MODERATE PAIN completed Allergies Allergen Reaction Severity Comment Documented Date Source Statu s PENICILLIN G CTP Encounters Encounter Type Encounter Reason Primary Diagnosis Location Date [facility] 01/16/2022 [facility] 12/18/2021 Care Team Organization Name Specialty Phone Email Start Date End [facility] 01/16/2022 [facility] 12/18/2021 01/16/2022
--- OUTSIDE RECORDS SUMMARY | 2024-12-12 09:48 | XMS_ITS | Clinical Summary ---
Author Organization [facility] Address [address] [place] [address] [place] [phone] Phone Care Team Providers Care Patient Registration Manager Name Role Phone Smith Asencio MD Primary Care Provider [phone] Allergies Active Allergy Reactions Criticality Noted Date Comments Penicillin Anaphylaxis High 11/20/2024 Medications No known medications Encounters Date Type Department Care Team Description 11/23/2024 Ancillary Orders [facility]Outside Imaging [address] [place] [address] Unknown, MD Osmin 11/20/2024 2:45 PM EDT Office Visit [facility] [address] [place] [address] Mela Rojas MD Foot sprain, left, initial encounter (Primary Dx) 10/19/2024 - 10/19/2024 11:59 PM EDT Hospital Encounter [facility],Outside Imaging [address] [place] [address] Unknown, MD Osmin Discharge Disposition: Home or Self Care from Last 3 Months Social History Tobacco Use Types Packs/Day Years Used Date Smoking Tobacco: Never Assessed Education Answer Date Recorded Are you interested in more education? Not on kassy e 11/01/2024 Are you concerned about learning? Not on file 11/01/2024 No 11/01/2024 No 11/01/2024 Digital Access Answer Date Recorded No 11/01/2024 No 11/01/2024 Reliable internet access at home? Not on file 11/01/2024 Device with a working camera? Not on file Sex and Gender Information Value Date Recorded Sex Assigned at Not on file Legal Sex Male 9:54 AM EDT Gender Identity Not on file Sexual Orientation Not on file Plan of Treatment Health Maintenance Due Date Last Done Comments LIPID PANEL 1978 DEPRESSION SCREENING 1990 SMOKING Hx and SMOKELESS TOB ACCO SCREENING 12/22/1991 HEPATITIS C SCREENING 1996 HIV ONE-TIME SCREENING (18-6 5 YEARS) 1996 COLOGUARD 12/22/2023 COLONOSCOPY 12/22/2023 COLORECTAL CANCER SCREENING 12/22/2023 FIT TEST 12/22/2023 FOBT 12/22/2023 SIGMOIDOSCOPY 12/22/2023 VIRTUAL COLONOSCOPY 12/22/2023 COVID-19 VACCINE (2023-2 5 season) 2024 Adult Td,Tdap Booster 08/02/2029 08/03/2019 HEPATITIS A VACCINES Aged Out No long er eligible based on patient's age to complete this topic HIB VACCINES Aged Out No longer eligi ble based on patient's age to complete this topic MENINGOCOCCAL VACCINES (ACWY) Aged Out No longer eligible based on patient's age to complete this topic MENINGOCOCCAL VACCINES (B) Aged Out N o longer eligible based on patient's age to complete this topic PNEUMOCOCCAL VACCINES (0-49 years) Aged Out No longer eligible based on patient's age to complete this topic Medical Devices Not on file Procedures Procedure Name Priority Date/Time Associated Diagnosis Comments XR LOWER EXTREMITY OUTSIDE (NO INTERPRETATION) Routine 10/19/2024 12:00 AM EDT from Last 3 Months Results * XR Lower Extremity Outside (No Interpretation) (10/19/2024 12:00 AM EDT) Narrative SYSTEMGENERATED, DOCUMENTATION - 11/23/2024 8:28 AM EDT This study is for PACS storage only and not for interpretation. us Unknown Unknown MD [facility]O OUTSIDE IMAGING W/OUT INT ERPRETATION Final Result from Last 3 Months Insurance [facility] Lumoid DIRECT DIRECT Member Subscriber Plan / Payer (Ef fective 2024-) Name:Leif Deng Relation to Subscriber:Self Name:Leif Deng Payer ID:[id number] ([facility]) Type:O Address: [place] [phone] DIRECT DIRECT DIRECT DIRECT Care Teams Patient Registration Manager Relationship Specialty Start Date End Date Smith Asencio MD [address] [place] [address] [place] [address] PCP - General Internal Medicine 11/01/24 Additional Source Comments The information contained in this document represents components of the legal health record. It is not the complete legal health record.[facility]
== END 2024-12-12 10:45 | disposition home or self-care (01) ==
LOC: HO.HMCH 09:16
PROVIDERS: PCP Internal Medicine; Visit Provider Internal Medicine
DX: E78.00 Pure hypercholesterolemia, unspecified (principal); I10 Essential (primary) hypertension; E66.9 Obesity, unspecified; Z68.39 Body mass index [BMI] 39.0-39.9, adult; R73.01 Impaired fasting glucose; G47.33 Obstructive sleep apnea (adult) (pediatric); R06.09 Other forms of dyspnea; E55.9 Vitamin D deficiency, unspecified; N48.9 Disorder of penis, unspecified; L98.9 Disorder of the skin and subcutaneous tissue, unspecified; G47.00 Insomnia, unspecified; Z12.11 Encounter for screening for malignant neoplasm of colon

== ENCOUNTER → 2024-12-12 09:15 | Outpatient (BNVA) | payer OTHER, SELFPAY | PROVIDERS: PCP Internal Medicine; Visit Provider Internal Medicine | DX: G47.33 Obstructive sleep apnea (adult) (pediatric) (principal); E78.00 Pure hypercholesterolemia, unspecified; I10 Essential (primary) hypertension; R73.01 Impaired fasting glucose; R06.09 Other forms of dyspnea; E55.9 Vitamin D deficiency, unspecified; N48.9 Disorder of penis, unspecified; L98.9 Disorder of the skin and subcutaneous tissue, unspecified; G47.00 Insomnia, unspecified; E66.9 Obesity, unspecified; Z99.89 Dependence on other enabling machines and devices; Z68.39 Body mass index [BMI] 39.0-39.9, adult | CPT/HCPCS: 96127; 99212 ==

== ENCOUNTER 2025-03-31 09:10 | Outpatient (REF) | payer OTHER, SELFPAY ==
--- NOTE | ~2025-03-31 | XR_ITS ---
CLINICAL HISTORY: M25.561 - Pain in right knee 4 views right knee Comparison: None Findings: No fractures, subluxations or dislocations. Joint intervals are preserved. No osteochondral lesions or loose bodies. Normal patellar alignment. Small suprapatellar joint effusion.Prepatellar soft tissue swelling and swelling along the patellar tendon. Normal bone mineralization and soft tissues. No unusual radiopaque foreign body. Impression: 1. Soft tissue swelling as described with a small suprapatellar joint effusion. This document has been electronically signed by: Ashish Sanford MD on 03/31/2025 10:21:51
--- OUTSIDE RECORDS SUMMARY | 2025-03-31 10:00 | XMS_ITS | Data Portability ---
Author Organization [place] - [facility], [facility] Address [address] [place] [address] Care Team Providers Care Print Production Associate Name Role Phone ROOPA VILLATORO Primary Care Provider [phone] Assessment Encounter Date Assessment Date Assessment LastModified [...] By Organization Details Last Modified Time 12/18/2021 [id number] Pre-operative preparation was discussed with the patient and instructions documenting my recommendations were given to the patient. ndonalds Not available 12/18/2021 12:59:39 The patient is h ere today to discuss contraceptive options including bilateral vasectomy for permanent sterilization.. In regard to specifics about vasectomy he reviewed the [facility] video reviewing the details of vasectomy important [...] received. ndonalds Not available 12/18/2021 12:59:39 01/16/2022 [id number] Post-operative recommendations were discussed with the patient and a handout as provided as well. ndonalds Not available 01/16/2022 11:05:12 Reason for Referral None Reported. Problems No Known Problems Procedures Surgical History Date Name Laterality Status Provider Name and Address Organization Details Recorded Time 01/17/20 22 Vasectomy completed LUIS DANIEL LOVELACE MD [address] [place] [address], [phone], [facility] 01/16/2022 11:16:37 05/24/19 20 Prostate laser enucleation completed LUIS DANIEL LOVELACE MD [address] [facility], [address] [place] [address], [phone], [facility] 12/18/2021 13:19:29 05/24/19 08 Hernia Repair completed Alba [facility] 12/18/2021 13:02:01 Imaging Results None recorded. Procedure Notes None recorded. Medical Equipment None Reported. Allergies Allergen ID Allergen Name Allergen Category Reaction Reaction Severity Criticality Documentation Date Start Date Code Code System Note Provider Name and Address Organization Details Recorded Time [id number] penicilli n G Not available Not available Not available Not available 12/18/2021 7980 RxNorm Kody [facility] 13:01:43 No known drug allergies Medications [...] Tobacco Smoking Status Never Smoker Alba Palom[facility], [facility] 12/18/2021 13:01:54 In The 14 Days Before [...] Or The Highest Degree You Have Received? 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 Information not available 12/18/2021 Do you or [...] 13:18:11 Mother No current problems or [email or web address] Not [facility] 12/18 13:18:11 Medical History Condition Response *No Diseases or Conditions Y Past Encounters Encounter ID Performer Location Encounter Start Date Encounter Closed Date Diagnosis/Indication Diagnosis SNOMED-CT Code Diagnosis ICD10 Code Diagnosis IMO Codes Diagnosis Note [id number] LUIS DANIEL LOVELACE MD [facility] [address] [facility] [place] [address] 12/18/2021 12:53:15 12/18/2021 14:35:51 Male sterilization [id number] Z30.2 [id number] LUIS DANIEL LOVELACE MD [facility] [address] [facility] [place] [address] 01/16/2022 10:59:56 01/16/2022 11:42:45 Male sterilization [id number] Z30.2 Health Concerns Section Related Observation LastModified by Organization Detai ls LastModified Time None Recorded Concern Status LastModified by Organization Details LastModified Time None Recorded Advance Directives Directive None Recorded Payers Insurance Date Sequence Insurance Name Policy Number Policy Robles Covered Member ID Robles Member ID Guarantor Name 01/16/2022 1 [facility] [employer] BANNER [id number] Leif Deng [id number] 1 Leif Deng 01/16/2022 1 *SELF PAY* Wi lola Deng Notes Date Note Type Note Provider Name and Address Organization Details Recorded Time 12/18/2021 text/html [facility] Vasectomy ConsultReported by PatientSpouse / Partner NameFor marital status, patient reportsspouse / partner name: (__),single,number of children: 0, andbirth control method: condoms. ProblemsFor location, patient reportsscrotum trauma no. LUIS DANIEL LOVELACE MD [address] [place] [address], [address] [facility], [place], [address], [facility] 12/18/2021 13:29:57 01/16/2022 text/html The patient is here today for a bilateral NN/NS vasectomy. His PMFS histories, medications and allergies were reviewed. He was reminded that vasectomy is not effective right away. He was counselled that he should continue to use alternative control until PVSA is completed at the three month post-op visit. LUIS DANIEL LOVELACE MD [address] [place] [address], [address] Floor, [place], [address], [facility] 01/16/2022 11:30:57
== END 2025-03-31 09:11 | disposition home or self-care (01) ==
LOC: HO.HMGCX 09:10
PROVIDERS: PCP Internal Medicine; Visit Provider Physician Assistant Medical
DX: S83.91XA Sprain of unspecified site of right knee, initial encounter (principal); W11.XXXA Fall on and from ladder, initial encounter; Y92.009 Unspecified place in unspecified non-institutional (private) residence as the place of occurrence of the external cause
CPT/HCPCS: 73564; 99212

== ENCOUNTER 2025-03-31 09:10 | Outpatient (AMB) | payer OTHER, SELFPAY ==
--- OUTSIDE RECORDS SUMMARY | 2025-03-31 09:12 | XMS_ITS | Clinical Summary ---
Author Organization [facility] Address [address] [place] [address] [place] [phone] Phone Care Team Providers Care Moulder Operator Name Role Phone Smith Asencio MD Primary Care Provider [phone] Allergies Active Allergy Reactions Criticality Noted Date Comments Penicillin Anaphylaxis High 11/20/2024 Medications No known medications Social History Tobacco Use Types Packs/Day Years [...] FOBT 12/22/2023 SIGMOIDOSCOPY 12/22/2023 VIRTUAL COLONOSCOPY 12/22/2023 INFLUENZA VACCINE (#1) 2024 COVID-19 VACCINE (2024-2 6 season) 2025 Adult Td,Tdap Booster 08/02/2029 08/03/2019 HEPATITIS A [...] this topic Medical Devices Not on file Insurance DIRECT DIRECT PLANS DIRECT DIRECT DIRECT DIRECT Care Teams Moulder Operator Relationship Specialty Start Date End Date Smith Asencio MD [address] [place] [address] [place] [address] PCP - General Internal Medicine 11/01/24 Additional Source Comments The information contained in this document represents components of the legal health record. It is not the complete legal health record.[facility]
--- NOTE | 2025-03-31 09:13 | AM.OFFWIN_ITS ---
Intake Vital Signs 03/31/25 09:15 Height 6 ft BMI Reason not done Patient refused/unable BP 130/80 Blood Pressure Location Lt brachial Position Sitting Pulse 78 Pulse Source Pulse Oximeter Pulse Oximetry (%) 98 Oxygen Delivery Method Room Air Intake Visit Reasons: EP-Fell from a ladder at [facility] [employer], Injured rt knee Patient Tobacco Use Status: Never used Tobacco Allergies penicillin G Allergy (Severe, Verified 03/31/25 09:20) anaphylaxis Penicillins (PENICILLINS) Allergy (Unknown, Verified 03/31/25 09:20) UNKNOWN lisinopril Adverse Reaction (Intermediate, Verified 03/31/25 09:20) Cough Do you need a note to return to daycare/school/sports/work: No HPI HPI Comments History of Present Illness Details This is a 44-year-old male who presented to the walk-in clinic complaining of right knee pain. Patient states that he fell off his ladder about 2 days ago. Patient states he thought he was on the last rung so he stepped back but he was actually 1 or 2 runs off of the ground, which caused him to fall backwards. He is unsure exactly how he landed but believes he landed on his right leg but does not believe that he landed directly on his knee. He states he was slightly sore after the incident but did not have any significant pain. He states that he had some mild right knee pain yesterday but he ice his knee and was able to keep working; however, the pain worsened throughout the day and he is now unable to flex or extend his knee and he is unable to bear weight due to severe pain. He also reports swelling of his right knee. He states the pain is located at his anterior knee. He has some numbness and tingling of his right toes last night but this has since resolved. He otherwise denies any other pain or any other injuries. [facility] Medical History Obesity (BMI 30-39.9) Vitamin D deficiency Impaired fasting glucose Obstructive sleep apnea Morbid obesity with BMI of 40.0-44.9, adult Pure hypercholesterolemia Benign essential hypertension Surgical History History of prostate surgery (~04/2019) History of vasectomy (~01/16/22) History of bilateral carpal tunnel release (~2005) Hx of left inguinal hernia repair (~2008) Social History Housing: Apartment Alcohol intake: current Alcohol intake frequency: holidays/special occasions only Patient Tobacco Use Status: Never used Tobacco e-Cigarette/Vaping Use: Never Used Second Hand Smoke Exposure: No service: No Current occupational status: employed Cognitive needs: No Hearing needs: No Vision needs: Yes Review of Systems Const All systems reviewed & are unremarkable except as noted in HPI and below Reports no additional complaints Eyes Reports no additional complaints ENT Reports no additional complaints Card Reports no additional complaints Resp Reports no additional complaints GI Reports no additional complaints Reports no additional complaints Musc Reports no additional complaints Skin/Breast Reports system reviewed and no additional complaints, except as documented Neuro Reports no additional complaints Psych Reports no additional complaints Endo Reports no additional complaints Milo/Lymph Reports no additional complaints Aller/Immun Reports no additional complaints Physical Exam Exam Exam: Vital signs reviewed. Constitutional: Non-toxic appearing. No acute distress. Well-developed and well-nourished. HEENT: Normocephalic and atraumatic. PERRL/EOMI. Skin: Warm and dry. No rashes or lesions noted. Neck: Full and painless range of motion. No cervical lymphadenopathy. Cardio: Regular rate. Pulmonary: No respiratory distress. No accessory muscle usage. Genitourinary: No CVA tenderness. Musculoskeletal: Reduced range of motion w/ flexion and extension of the right knee due to pain. There is mild swelling of the right anterior knee. There is no erythema of the skin of the right knee. He has diffuse tenderness to palpation of the right anterior knee. There is some mild tenderness to palpation of the medial and lateral joint lines of the right knee. He has a positive anterior drawer test, negative posterior drawer test, and negative valgus/varus stress test. Neuro: Alert and oriented x4. Cranial nerves 2-12 grossly intact. No focal deficits appreciated. Psych: Normal mood and affect. Vital Signs: Last Vital Signs Pulse 78 03/31/25 09:15 BP 130/80 03/31/25 09:15 Pulse Ox 98 03/31/25 09:15 Oxygen Delivery Method Room Air 03/31/25 09:15 Assessment & Plan Assessment & Plan (1) Sprain of right knee: Code(s): S83.91XA - Sprain of unspecified site of right knee, initial encounter Qualifiers: Encounter type: initial encounter Involved ligament of knee: unspecified ligament Qualified Code(s): S83.91XA - Sprain of unspecified site of right knee, initial encounter Plan 44-year-old male who presented to the walk-in clinic complaining of right knee pain that began after falling from a ladder 2 days ago. On physical examination, he is tenderness to palpation of the anterior right knee and medial/lateral joint lines, mild swelling of the right knee, as well as a positive anterior drawer test with negative valgus/varus stress testing and negative posterior drawer testing. Differential diagnoses includes fracture versus dislocation versus meniscal injury versus ligamentous injury. An x-ray of the right knee was obtained, which showed prepatellar soft tissue swelling and a small suprapatellar joint effusion without any fractures. Patient was given orthopedics referral for further evaluation and imaging to rule out meniscal versus ligamentous injury. He was also given a knee brace as well as crutches. Recommended rest/activity modification, ice to the area, elevation of the extremity, and continue with acetaminophen/ibuprofen for pain management as long as patient has no medical contraindications. Patient was also given 3 tablets of PO tramadol 50 mg to be taken at bedtime as needed for severe pain. His MASSPat was reviewed without any discrepancies. Orders: Referrals Orthopedics Referral M25.561 - Pain in right knee Medications: New tramadol 50 mg PO BEDTIME PRN 3 tabs 0RF pain (scale score 7-10) Coding Level of Care Code Est Pt Level 3 (29055) Diagnoses Sprain of right knee, unspecified ligament, initial encounter S83.91XA Encounter type: initial encounter Involved ligament of knee: unspecified ligament
[2025-03-31 09:15] VITALS: BP 130/80; PULSE 78; O2SAT 98
== END 2025-03-31 11:04 | disposition home or self-care (01) ==
LOC: HO.HMCWIC 09:10
PROVIDERS: PCP Internal Medicine; Visit Provider Physician Assistant Medical
DX: S83.91XA Sprain of unspecified site of right knee, initial encounter (principal)

== ENCOUNTER → 2025-03-31 10:01 | Outpatient (BNV) | payer OTHER, SELFPAY | PROVIDERS: PCP Internal Medicine; Visit Provider Radiology Diagnostic Radiology | DX: M25.461 Effusion, right knee (principal); M79.89 Other specified soft tissue disorders | CPT/HCPCS: 73564 ==

== ENCOUNTER 2025-05-15 07:39 | Outpatient (REF) | payer OTHER, SELFPAY ==
--- OUTSIDE RECORDS SUMMARY | 2025-05-10 15:00 | XMS_ITS | Encounter Summary ---
Author Organization [facility] Address [address] [place] [id number] Phone Care Team Providers Care Neck Skewer Name Role Phone Smith Asencio MD Primary Care Provider [phone] Reason for Visit * Reason Comments Follow-up Rupture of right pat ellar tendon * Consultation (Routine) - Authorized Specialty Diagnoses / Procedures Referred By Contact Referred To Contact Orthopedic Surgery / Orthopedics Diagnoses right knee MRI f/u with Dr Ornelas. MRI was done on 04/02/25 at [facility] Procedures TRANSFER ORTHO Smith Asencio MD Phone: tel: fax: [facility] [address] [place] [address] [place] [id number] Phone: tel: fax: Referral ID Status Reason Start Date Expiration Date V isits Requested Visits Authorized [id number] Authorized 04/06/2025 05/23/2025 6 6 Encounter Details Date Type Department Care Team (Late st Contact Info) Description 05/10/2025 3:00 PM EST Office Visit [facility] [address] [place] [address] [place] [id number] Param Ornelas MD [address] [place] [address] Orthopedics & Sports Medicine, [facility] [place] [address] [email or web address] Rupture of right patellar tendon, initial encounter (Primary Dx) Social History Tobacco Use Types Packs/Day Years Used Date Smoking Tobacco: Never Smokeless Tobacco: Never Education Answer Date Recorded Are you interested [...] on file Sexual Orientation Not on file documented as of this encounter Progress Notes * Param Ornelas MD - 05/10/2025 3:00 PM EST [facility] [address] [place] [address] Office Note: Name: Leif Deng : 1980 Date of Visit: 05/10/2025 Chief Complaint: Right knee injury HPI: May 10, 2025: Follow-up today on right knee pain. Please review previous note. Patient has an injury to his right knee with an MRI that indicated a possible small partial tear of the patellar tendon and some additional signal in the quadricep tendon. Date of injury was March 29, 2025. Since our first visit he has self discontinued his brace and he has returned to work. He notes steadyimprovement in his discomfort. He is not working at full capacity at this point in time and he is being careful in terms of forceful contraction of the quadriceps and forceful extension of the right knee. April 12, 2025: Follow-up today for injury to the right knee. He notes that the knee pain has reduced and he is becoming somewhat more mobile. He has been using his brace with crutches partial weightbearing. April 06, 2024: This patient is 44 years old he fell off a ladder date of injury was March: He fell about 5 feet and landed awkwardly. He does not know if he landed directly against hiskneecap. Since then he said pain and swelling. He was seen in the walk-in injury clinic and physicians visitor information assistant suspected injury to the extensor mechanism or possibly a fracture of the patella. An MRI was ordered. X-rays and MRI will be reviewed below. Patient states that he has pain that can be severe at times. He has had swelling. No previous injury or surgery noted to this extremity. He was given oxycodone and has been taking Tylenol and Aleve as well. His pain is moderate at this time. Past Medical History: History reviewed. No pertinent past medical history. Past Surgical History: No past surgical history on file. Medications: Outpatient Medications Marked as Taking for the 05/10/25 encounter (Office Visit) with Param Ornelas MD Medication Sig Dispense Refill Last Dispense amoxicillin-clavulanate (AUGMENTIN) 875-125 mg per tablet Take 1 tablet by mouth 2 (two) times a day. Unknown (patient-reported) famotidine (PEPCID) 20 MG tablet Take 20 mg by mouth daily. Unknown (patient-reported) ibuprofen (ADVIL,MOTRIN) 800 MG tablet Take 800 mg by mouth every 6 (six) hours as needed for pain (specific location in comments) (3 times daily). Unknown (patient-reported) nystatin cream APPLY TOPICALLY TWICE DAILY WHEN FLARED UNTIL CLEARED THEN ONCE WEEKLY FOR MAINTENANCE Unknown (patient-reported) silver sulfADIAZINE (SSD) 1 % cream Apply topically daily. Unknown (patient-reported) Smoking History: reports that he has never smoked. He has never used smokeless tobacco. Physical Exam: He is well-appearing and in no apparent distress. He is awake and alert and answers questions appropriately. He is knee has a moderate effusion. There is minimal tenderness on the lateral aspect of the patella and over the anterior aspect of the patella as well. With some discomfort he is able to maintain a straight leg raise against resistance. There is no palpable defect of patellar tendon or of quadricep tendon. Distal neurologic vas exams intact. Strength appears near normal. Imaging: I have personally reviewed x-rays taken at the time of his visit to the injury clinic. There appears to be a small avulsion fracture of an osteophyte at the lateral aspect of the patella. Repeat x-rays today show no significant change in this fracture. No propagation of the fracture. MRI shows bright T2 signal in that area suggesting an acute injury. I have reviewed MRI as well. There issome indication of degenerative tearing of both medial and lateral meniscus. There is myxoid degeneration of the ACL. There is some tendinosis noted at the proximal portion of the patellar tendon andperhaps a partial tear. This is read this way by radiology. I do not see clear evidence of a partial tear. There is some T2 signal in the tendon for certain. The bulk of the tendon appears to be intact. Quadricep tendon intact. As mentioned above there is T2 signal in the avulsion fracture. Assessment: Osteophyte avulsion fracture lateral aspect of the patella. Tendinosis possible partialtear right patellar tendon. Plan: It is okay to discontinue the brace at this point in time. Patient and I had a long discussion about eccentric contraction of the extensor mechanism and how he should avoid that sort of motion.Gradual increase in use of quad/extensor mechanism is appropriate. If he is not feeling essentiallynormal by 4 to 6 weeks from now he will request another appointment. Continue physical therapy at this time. I do not believe the small avulsion fracture from the patella is of significance at this time. No surgical indication. Generally treatment of the tendon like this for a gentleman who works on a physical basis will require modified work or time off for at least 3 months. The patient???s agenda was elicited and addressed during the visit. All questions were satisfactorily answered and the patient was in agreement with this plan. Param Ornelas MD [facility] Certified Orthopaedic Surgeon documented in this encounter Plan of Treatment Not on file documented as of this encounter Visit Diagnoses Diagnosis Rupture of right patellar tendon, initial encounter- Primary documented in this encounter Care Teams Neck Skewer Relationship Specialty Start Date End Date Smith Asencio MD [address] [place] [address] Dr Gaviria [address] [place] [id number] PCP - General Internal Medicine 11/01/24 documented as of this encounter Additional Source Comments The information contained in this document represents components of the legal health record. It is not the complete legal health record.[facility]
--- OUTSIDE RECORDS SUMMARY | 2025-05-15 07:42 | XMS_ITS | Clinical Summary ---
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 Active oxyCODONE 5 MG immediate release tablet Take 1 tablet (5 mg total) by mouth every 6 (six) hours as needed for pain (specific location in comments). Partial fill ok 10 tablet 5 Active Additional Information Patient not taking.Reported on 05/10/2025 amoxicillin-clav ulanate (AUGMENTIN) 875-125 mg per tablet Take 1 tablet by mouth 2 (two) times a day. Active nystatin cream APPLY TOPICALLY TWICE DAILY WHEN FLARED UNTIL CLEARED THEN ONCE WEEKLY FOR MAINTENANCE 5 Active famotidine (PEPCID) 20 MG tablet Take 20 mg by mouth daily. Active silver sulfADIAZINE (SSD) 1 % cream Apply topically daily. Active oxyCODONE 5 MG immediate release tablet Take 5 mg by mouth every 6 (six) hours as needed. Active Encounters Date Type Department Care Team Description 05/10/2025 3:00 PM EST Office Visit [facility] [address] [place] [address] [place] [address] Param Ornelas MD Rupture of right patellar tendon, initial encounter (Primary Dx) 04/12/2025 9:30 AM EST Office Visit [facility] [address] [place] [address] [place] [address] Param Ornelas MD Rupture of right patellar tendon, initial encounter (Primary Dx) 04/12/2025 8:57 AM EST - 04/12/2025 11:59 PM EST Hospital Encounter [facility], X-Ray - [address] [place] [address] Param Ornelas MD Discharge Disposition: Home or Self Care 04/10/2025 Orders Only [facility] [address] [place] [address] Ghazala Rogers MA Other closed fracture of right patella, initial encounter (Primary Dx) 04/06/2025 9:30 AM EST Office Visit [facility] [address] [place] [address] Param Ornelas MD Other closed fracture of right patella, initial encounter (Primary Dx); Patellar tendinosis 04/04/2025 Ancillary Orders [facility]Outside Imaging [address] [place] [address] Osmin Solorio MD 04/02/2025 8:40 AM EST Office Visit [facility] [address] [place] [id number] Regulo Lazo PA-C Right knee pain (Primary Dx); Closed displaced longitudinal fracture of right patella, initial encounter; Rupture of right patellar tendon, initial encounter 04/02/2025 8:36 AM EST - 04/02/2025 11:59 PM EST Hospital Encounter [address] [address] Regulo Lazo PA-C Discharge Disposition: Home or Self Care 04/02/2025 - 04/02/2025 8:35 AM EST Hospital Encounter [facility] [address] [place] [address] Unknown, MD Osmin Discharge Disposition: Home or Self Care 04/02/2025 Ancillary Orders [facility] [address] [place] [address] Osmin Solorio MD 03/31/2025 - 03/31/2025 11:59 PM EST Hospital Encounter [facility] [address] [place] [address] Osmin, Osmin, Discharge Disposition: Home or Self Care from Last 3 Months Social History Tobacco Use Types Packs/Day Years Used Date Smoking Tobacco: Never Smokeless Tobacco: Never Tobacco Cessation:Counseling Given: Not Answered Education Answer Date Recorded Are you interested [...] on file Sexual Orientation Not on file Last Filed Vital Signs Vital Sign Reading Time Taken Comments Blood Pressure - - Pulse - - Temperature - - Respiratory Rate - - Oxygen Saturation - - Inhaled Oxygen Concentration - - Weight 131.5 kg (290 lb) 04/06/2025 9:18 AM EST Height 182.9 cm (6') 04/06/2025 9:18 AM EST Body Mass Index 39.33 04/06/2025 9:18 AM EST Plan of Treatment Health Maintenance Due Date Last Done Comments LIPID PANEL 1978 DEPRESSION SCREENING 1990 HEPATITIS C SCREENING 1996 HIV ONE-TIME SCREENING (18-6 5 YEARS) 1996 SCREENING FOR DIABETES 2013 COLOGUARD 12/22/2023 COLONOSCOPY 12/22/2023 COLORECTAL CANCER SCREENING 12/22/2023 FIT TEST 12/22/2023 FOBT 12/22/2023 SIGMOIDOSCOPY 12/22/2023 VIRTUAL COLONOSCOPY 12/22/2023 INFLUENZA VACCINE (#1) 2024 COVID-19 VACCINE (2024-2 6 season) 2025 Adult Td,Tdap Booster 08/02/2029 08/03/2019 SMOKING STATUS SCREENING (On ce After 26 Yrs) Completed 05/10/2025 HEPATITIS A VACCINES Aged Out No long [...] Name Priority Date/Time Associated Diagnosis Comments XR KNEE 3 VIEW (RIGHT) Routine 04/12/2025 9:24 AM EST Other closed fracture of right patella, initial encounter MRI KNEE (RIGHT) Urgent/patient waiting 04/02/2025 9:43 AM EST Closed displaced longitudinal fracture of right patella, initial encounter Rupture of right patellar tendon, initial encounter XR KNEE 3 VIEW (RIGHT) Routine 04/02/2025 8:59 AM EST Right knee pain MRI LOWER EXTREMITY OUTSIDE (NO INTERPRETATION) Routine 04/02/2025 12:00 AM EST XR LOWER EXTREMITY OUTSIDE (NO INTERPRETATION) Routine 03/31/2025 12:00 AM EST from Last 3 Months Results * XR KNEE 3 VIEW (RIGHT) (04/12/2025 9:24 AM EST) Anatomical Region Laterality Modality Knee Right Computed Radiogr aphy 04/12/2025 12:2 3 PM EST Impressions 04/12/2025 12:25 PM EST Small ossific fragment seen adjacent to the lateral pole of the patella which may be due to a prior avulsion fracture or fragmented osteophyte. Mild degenerative changes with mild spurring within the patellofemoral compartment and mild spurring along the medial joint line. No significant joint space narrowing. There remains some anterior soft tissue swelling and perhaps a small suprapatellar joint effusion. Narrative 04/12/2025 12:25 PM EST XR KNEE 3 VIEW (RIGHT) Referring clinician's provided indication for this examination in [facility]: Fracture Follow Up COMPARISON: XR KNEE 3 VIEW (RIGHT) Procedure Note John Maloney MD - 04/12/2025 XR KNEE 3 VIEW (RIGHT) Referring clinician's provided indication for this examination in [facility]:Fracture Follow Up COMPARISON: XR KNEE 3 VIEW (RIGHT) IMPRESSION: Small ossific fragment seen adjacent to the lateral pole of the patellawhich may be due to a prior avulsion fracture or fragmented osteophyte.Mild degenerative changes with mild spurring within the patellofemoralcompartment and mild spurring along the medial joint line. No significantjoint space narrowing. There remains some anterior soft tissue swellingand perhaps a small suprapatellar joint effusion. us Param Ornelas MD IMG XR LOWER EXTREMITY Final Result * XR KNEE 3 VIEW (RIGHT) (04/02/2025 8:59 AM EST) Narrative SYSTEMGENERATED, DOCUMENTATION - 04/02/2025 8:59 AM EST This image report has been auto-finalized and has not been read by a Radiologist. Interpretation has been included in the provider encounter note for this date of service. us Regulo Lazo PA-C IMG XR LOWER EXTREMITY Final Result * MRI Lower Extremity Outside (No Interpretation) (04/02/2025 12:00 AM EST) Narrative SYSTEMGENERATED, DOCUMENTATION - 04/04/2025 8:17 AM EST This study is for PACS storage only and not for interpretation. us Unknown Unknown MD [facility] OUTSIDE IMAGING W/OUT INT ERPRETATION Final Result * XR Lower Extremity Outside (No Interpretation) (03/31/2025 12:00 AM EST) Narrative SYSTEMGENERATED, DOCUMENTATION - 04/02/2025 8:40 AM EST This study is for PACS storage only and not for interpretation. us Unknown Unknown MD [facility] OUTSIDE IMAGING W/OUT INT ERPRETATION Final Result from Last 3 Months Insurance [employer] DIRECT DIRECT DIRECT PLANS DIRECT DIRECT DIRECT Care Teams [employer] Relationship Specialty Start Date End Date Smith Asencio MD [address] [place] [address] [place] [address] PCP - General Internal Medicine 11/01/24 Additional Source Comments The information contained in this document represents components of the legal health record. It is not the complete legal health record.[facility]
--- OUTSIDE RECORDS SUMMARY | 2025-05-15 07:42 | XMS_ITS | Encounter Summary ---
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 Smith Asencio MD Primary Care Provider [phone] Encounter Details Date Type Department Care Team (Late st Contact Info) Description 04/10/2025 Orders Only [facility] [address] [place] [id number] Ghazala Rogers [address] [address] [email or web address] Other closed fracture of right patella, initial encounter (Primary Dx) Social History Tobacco [...] on file documented as of this encounter Plan of Treatment Not on file documented as of this encounter Results * XR KNEE 3 VIEW (RIGHT) [...] clinician's provided indication for this examination in [facility]: Fracture Follow Up COMPARISON: XR KNEE 3 VIEW (RIGHT) Procedure Note John Maloney MD - 04/12/2025 XR KNEE 3 VIEW (RIGHT) Referring clinician's provided indication for this examination in [facility]:Fracture Follow Up COMPARISON: XR KNEE 3 VIEW [...] swellingand perhaps a small suprapatellar joint effusion. 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 It is not the complete legal health record.[facility]
--- NOTE | 2025-05-15 07:46 | PFT_ITS ---
Indication: Dyspnea Spirometry FEV1 to FVC 79%; FEV1 4.45 L; FVC 5.62 L. No significant response to bronchodilators noted. Lung Volumes Total lung capacity 99% predicted; residual volume 107% predicted; expiratory reserve volume 34% predicted Diffusion Capacity DLCO 132% predicted Flow Volume Loops Normal lung mechanics MVV 108% predicted Comparisons None Interpretation No obstructive nor restrictive ventilatory defects identified. No significant response to bronchodilators noted. Normal lung volumes except for decrease in the expiratory reserve volume secondary to an elevated BMI. Diffusing capacity is significantly elevated. Therefore should consider exposure to exogenous carbon monoxide. Clinical correlation warranted. MTDD
[2025-05-15 08:18] VITALS: PULSE 75
== END 2025-05-15 07:40 ==
LOC: HO.RESP 07:39
PROVIDERS: PCP Internal Medicine; Visit Provider Internal Medicine
DX: R06.09 Other forms of dyspnea (principal)
CPT/HCPCS: 94060; 94640; 94727; 94729

== ENCOUNTER → 2025-05-15 07:46 | Outpatient (BNV) | payer OTHER, SELFPAY | PROVIDERS: PCP Internal Medicine; Visit Provider Hospitalist | DX: R06.00 Dyspnea, unspecified (principal) | CPT/HCPCS: 94060; 94727; 94729 ==